=== PATIENT | male | born 1970 | race African-American/Black ===

== ENCOUNTER 2016-06-20 09:10 | Emergency (ER) | payer SELFPAY ==
[2016-06-20 11:02] LABS: APPEARANCE,URINE CLEAR; BILIRUBIN,URINE NEGATIVE (NEGATIVE); GLUCOSE, URINE NEGATIVE (NEGATIVE); KETONES,URINE TRACE mg/dL (NEGATIVE); LEUKOCYTE ESTERASE,URINE NEGATIVE (NEGATIVE); NITRITE,URINE NEGATIVE (NEGATIVE); PROTEIN,URINE NEGATIVE (NEGATIVE); URINE SPECIFIC GRAVITY 1.019; UROBILINOGEN,URINE NEGATIVE mg/dL (<2.0)
[2016-06-20 11:20] LABS: URINE BARBITURATES SCREEN NEGATIVE; URINE METHADONE SCREEN NEGATIVE; URINE PHENCYCLIDINE SCREEN NEGATIVE
[2016-06-20 11:58] LABS: ABSOLUTE BASOPHILS # (AUTO) 0.1 10^3/uL (0.0-0.2); ABSOLUTE EOSINOPHILS # (AUTO) 0.1 10^3/uL (0.0-0.6); ABSOLUTE LYMPHOCYTES (AUTO) 1.7 10^3/uL (0.5-4.7); ABSOLUTE MONOCYTES (AUTO) 0.5 10^3/uL (0.1-1.4); ABSOLUTE NEUT (AUTO) 2.2 10^3/uL (1.7-8.2); BASOPHILS % (AUTO) 2.6 % (0-2); EOSINOPHILS % (AUTO) 1.3 % (0-6); HEMATOCRIT 41.4 % (37.9-51.0); HEMOGLOBIN 13.8 g/dL (13.5-17.0); LYMPHOCYTES % (AUTO) 36.8 % (13-45); MEAN CORPUSCULAR HEMOGLOBIN 28.9 pg (27.0-33.4); MEAN CORPUSCULAR HGB CONC 33.3 g/dL (32.0-36.0); MEAN CORPUSCULAR VOLUME 87 fl (80-97); MONOCYTES % (AUTO) 11.6 % (3-13); RED BLOOD COUNT 4.77 10^6/uL (4.35-5.55); RED CELL DISTRIBUTION WIDTH 14.2 % (11.5-14.0); SEGMENTED NEUTROPHILS % (AUTO) 47.7 % (42-78); WHITE BLOOD COUNT 4.5 10^3/uL (4.0-10.5)
--- NOTE | 2016-06-20 12:11 | ER Document Report ---
ED Psych Disorder / Suicide - General Chief Complaint: Suicidal Ideation Stated Complaint: WEAKNESS Time seen by provider: 12:09 Mode of Arrival: Ambulatory Information source: Patient Notes: The patient is a 46-year-old man with a history of depression and presents to the emergency room hearing voices telling him to hurt himself. Patient states he has been depressed. Patient states she's not been on antidepressant medicines for "a while". He states he has been hospitalized at the [facility] in [place] which is where he is from. He is currently staying with his mother here in [place]. TRAVEL OUTSIDE OF THE U.S. IN LAST 30 DAYS: No - HPI Patient complains to provider of: Suicidal ideation Onset: Just prior to arrival Onset was: Gradual Quality of pain: No pain Severity: None Pain Level: Denies Suicide Risk Factors: Depressed, Male Situational problems related to: denies: Daughter, Legal problems, Lost job, Parent, Recent , Recent divorce, School, Sexual orientation, Significant other, Son, Spouse, Work, Other Suicide Attempt Method: denies: Drowning, Hanging, Motor Vehicle, Overdose, Shooting, Stabbing/Cutting, Train, Other Overdose of: No: Acetominophen, Alcohol, Anticholinergic, Anti-depressants, Benzodiazepine, Salicylate, Tricyclic Antidepressant, Other Injury to: No: Generalized, Abdomen, Ankle, Back, Breast, Buttocks, Chest, Elbow , Epigastric, Flank, Face, Finger, Foot, Hand, Head, Hip, Knee, Leg, Lower extremity, Mouth, Neck, Pelvic, Penis, Perineum, Rectum, Shoulder, Testicle, Thigh, Throat, Trunk, Upper extremity, Vagina, Wrist Associated symptoms: Auditory hallucinations, Depressed Similar symptoms previously: Yes Recently seen / treated by doctor: No - Related Data Allergies/Adverse Reactions: No Known Allergies Allergy (Verified 06/20/16 18:48) Home Medications: Current Home Medications No Home Medications 06/20/16 [History] Past Medical History - General Information source: Patient - Social History Smoking Status: Current Every Day Smoker Cigarette use (# per day): Yes Chew tobacco use (# tins/day): No - 1 pack per day Frequency of alcohol use: None Drug Abuse: Marijuana Family History: Reviewed & Not Pertinent Patient has suicidal ideation: Yes Patient has homicidal ideation: No - Past Medical History Cardiac Medical History: Reports: None Pulmonary Medical History: Reports: None EENT Medical History: Reports: None Neurological Medical History: Reports: Hx Migraine Endocrine Medical History: Reports: None Renal/ Medical History: Reports: None. Denies: Hx Peritoneal Dialysis Malignancy Medical History: Reports None GI Medical History: Reports: Hx Gastroesophageal Reflux Disease, Hx Hepatitis - B & C, Hx Ulcer Musculoskeltal Medical History: Reports None Skin Medical History: Reports None Psychiatric Medical History: Reports: Hx Depression Traumatic Medical History: Reports: None Infectious Medical History: Reports: Hx Hepatitis - B & C Past Surgical History: Reports: Hx Abdominal Surgery - left inguinal hernia, Hx Herniorrhaphy, Hx Kidney (Renal Surgery) - Donated kidney, Other - Patient donated a candidate to his brother - Immunizations Immunizations up to date: No Hx Diphtheria, Pertussis, Tetanus Vaccination: Yes Review of Systems - Review of Systems Constitutional: denies: Chills, Fever EENT: No symptoms reported Cardiovascular: No symptoms reported Respiratory: No symptoms reported Gastrointestinal: No symptoms reported Genitourinary: No symptoms reported Male Genitourinary: No symptoms reported Musculoskeletal: No symptoms reported Skin: No symptoms reported Hematologic/Lymphatic: No symptoms reported Neurological/Psychological: See HPI Physical Exam - Vital signs Vitals: Temp Pulse Resp BP Pulse Ox 97.9 F 53 L 18 133/83 H 98 06/20/16 09:18 06/20/16 09:18 06/20/16 09:18 06/20/16 09:18 06/20/16 09:18 Notes: Physical exam: GENERAL: 46-year-old man, alert and oriented 3, no acute distress HEAD: Atraumatic, normocephalic. EYES: Pupils equal round and reactive to light, extraocular movements intact, sclera anicteric, conjunctiva are normal. ENT: TMs normal, nares patent, oropharynx clear without exudates. Moist mucous membranes. NECK: Normal range of motion, supple without lymphadenopathy or JVD. LUNGS: Breath sounds clear to auscultation bilaterally and equal. No wheezes rales or rhonchi. HEART: Regular rate and rhythm without murmurs, rubs or gallops. ABDOMEN: Soft, nontender, normoactive bowel sounds. No guarding, no rebound. No masses appreciated. EXTREMITIES: Normal range of motion, no pitting or edema. No clubbing or cyanosis. NEUROLOGICAL: Cranial nerves II through XII grossly intact. Normal speech, normal gait. PSYCH: Appears depressed, endorses suicidal ideations, states he is hearing voices. SKIN: Warm, Dry, normal turgor, no rashes or lesions noted. Course - Re-evaluation Re-evalutation: 06/20/16 14:47 Patient is medically stable for psychiatric admission or discharge. 06/20/16 19:55 - Vital Signs Vital signs: Temp Pulse Resp BP Pulse Ox 98.1 F 50 L 15 132/85 H 99 06/20/16 16:33 06/20/16 16:33 06/20/16 16:33 06/20/16 16:33 06/20/16 16:33 - Laboratory Result Diagrams: 06/20/16 11:29 06/20/16 11:29 Laboratory results interpreted by me: 06/20/16 06/20/16 06/20/16 10:05 11:29 11:29 RDW 14.2 H Basophils % 2.6 H Creatinine 1.26 H Urine Ketones TRACE H Salicylates < 1.0 L Acetaminophen < 10 L - EKG Interpretation by Me Rate: Normal Rhythm: NSR - EKG shows normal sinus rhythm with a ventricular rate of 50, no acute ST-T wave changes Discharge - Discharge Clinical Impression: mood disorder NOS, suicidal ideation, pre-hypertension Condition: Stable Disposition: PSYCH HOSP/UNIT Additional Instructions: Regarding Blood Pressure: The Centers for Medicare and Medicaid Services has specific recommendations regarding a person's blood pressure. There are several lifestyle modifications that are recommended in order to help lower your blood pressure. These include: Quitting smoking if you smoke. Reducing the amount of sodium in your diet. Getting regular exercise Limiting alcohol to no more than 2 drinks a day for men and one drink a day for women. Eating a healthy diet, including more fruits and vegetables, low fat dairy products, less saturated and total fat. Losing weight if you are overweight. FOLLOW-UP: It is recommended that you follow-up with a primary care physician within the next 2-3 days for a repeat blood pressure evaluation and counseling about the specific lifestyle modifications that are right for you. Call your doctor's office and let them know your blood pressure was elevated and you were advised to get your blood pressure checked in the above time-line. If you are unable to get into your doctor's office in this time period, you can follow-up with a new physician (I have left the numbers below for a few primary care doctors affiliated with this [facility]) or return to the ER. PRIMARY CARE PHYSICIANS: Dr. Justo Cee [address], [place] [address] [phone] Dr Cisneros Address: [address] [place] [address] , [place] [address] Dr Taylor Address: [address] [place] [address] , [place] [id number] Dr Gregory Barrera [address] [place] [address] [place] [address] [phone] Forms: Elevated Blood Pressure
[2016-06-20 12:15] LABS: ALANINE AMINOTRANSFERASE 27 U/L (21-72); ALBUMIN 3.9 g/dL (3.5-5.0); ALKALINE PHOSPHATASE 56 U/L (38-126); ANION GAP 9 (5-19); ASPARTATE AMINO TRANSFERASE 27 U/L (17-59); BILIRUBIN,TOTAL 0.8 mg/dL (0.2-1.3); BLOOD UREA NITROGEN 10 mg/dL (7-20); CALCIUM 9.6 mg/dL (8.4-10.2); CARBON DIOXIDE 26 mmol/L (22-30); CHLORIDE 106 mmol/L (98-107); CREATININE RESULT 1.26 mg/dL (0.52-1.25); GLUCOSE 109 mg/dL (75-110); POTASSIUM 3.9 mmol/L (3.6-5.0); TOTAL PROTEIN 6.5 g/dL (6.3-8.2)
[2016-06-20 12:22] LABS: ALCOHOL < 10 mg/dL (NONE DETECTED)
--- NOTE | 2016-06-20 12:29 | EKG REPORT ---
SEVERITY:- NORMAL ECG - SINUS RHYTHM : Confirmed by: Jose Estraad MD 20-Jun-2016 12:28:11
[2016-06-20] MEDS ORDERED: HALOPERIDOL LACTATE INJ 5 MG/1 ML VIAL IM ONE (14:14)
[2016-06-20] MEDS ORDERED: BENZTROPINE MESYLATE 1 MG TABLET PO ONE (14:15)
--- NOTE | 2016-06-20 16:18 | PSYCHOLOGICAL NOTE ---
Psych Note - Psych Note Psych Note: Patient is a 46 year old male who presents requesting assistance with hearing voices and possible SI. Note, patient accompanied another patient who presented via EMS, by riding in the ambulance and later opted to check in. Patient states he suddenly started hearing voices to harm himself. He states he does NOT want to hurt himself, but that is what the voices are telling him to do. Patient states he recently relocated from [place], where he was residing in the homeless residential and receiving mental health treatment. Patient states he was recently at [facility], where he went via [facility]. Patient denies that he attempted to harm himself prior to that admission, but states experiencing the same command hallucinations, so he presented to the ED. Patient states he was taking medications upon discharge, but cannot recall what they were. Patient reports he relocated to [place] to stay with his mother. Patient reports he thinks he was being followed by [facility] prior to his admission at [facility]. Patient reports one prior suicide attempt via attempting to slit his throat, but reports it was years ago (unable to provide specifics). Patient reports auditory command hallucinations, but adamant that he does not want to hurt himself. Patient states he usually orly with the voices, which he reports he hears daily, by sleeping. Discussed with patient additional coping skills, to include keeping himself busy or distracted by watching television, etc. Patient is A&Ox4. Mood is euthymic with normal affect. Patient denies suicidal/ homicidal ideations, intent, plan, or means. Patient endorses auditory command hallucinations telling him to harm himself. Thought processes were organized. Conversational speech was WNL for rate, tone, and prosody. Intellectual abilities were estimated within low average range. Attention and focus were fair. Insight, judgment, and impulse control were fair. Unspecified Schizophrenia and Other Psychotic Disorder Patient was psychiatric cleared and recommended for discharge; however, after discussing plan of care with ED MD concerns were expressed in regards to patient 's ability to remain safe throughout tonight prior to following up with [facility] tomorrow morning. Therefor, patient was placed under IVC and will be reevaluated in the morning for further disposition and recommendations. I consulted with Dr. Everett in regards to the care and management of this patient.
[2016-06-21] MEDS ORDERED: ONDANSETRON 4 MG TAB.RAPDIS SL ONE (03:25)
--- NOTE | 2016-06-21 03:28 | ER Document Report ---
Doctor's Note Notes: 06/21/16 03:27 Notified the nursing staff that patient had an episode of vomiting, Zofran has been ordered as well as repeat labs, I evaluated patient, he reports that he no longer feels nauseated but he is having some right-sided abdominal pain, there is mild tenderness in the right upper quadrant on evaluation, he does have some voluntary guarding as well
[2016-06-21 03:56] LABS: ABSOLUTE EOSINOPHILS # (AUTO) 0.1 10^3/uL (0.0-0.6); ABSOLUTE LYMPHOCYTES (AUTO) 2.3 10^3/uL (0.5-4.7); ABSOLUTE MONOCYTES (AUTO) 0.6 10^3/uL (0.1-1.4); ABSOLUTE NEUT (AUTO) 2.9 10^3/uL (1.7-8.2); BASOPHILS % (AUTO) 0.7 % (0-2); HEMATOCRIT 47.5 % (37.9-51.0); HEMOGLOBIN 15.2 g/dL (13.5-17.0); HGB HCT DIFFERENCE -1.9; LYMPHOCYTES % (AUTO) 39.1 % (13-45); MEAN CORPUSCULAR HEMOGLOBIN 28.1 pg (27.0-33.4); MEAN CORPUSCULAR VOLUME 88 fl (80-97); MONOCYTES % (AUTO) 10.5 % (3-13); RED BLOOD COUNT 5.43 10^6/uL (4.35-5.55); SEGMENTED NEUTROPHILS % (AUTO) 48.7 % (42-78); WHITE BLOOD COUNT 5.9 10^3/uL (4.0-10.5)
[2016-06-21 04:07] LABS: ALANINE AMINOTRANSFERASE 37 U/L (21-72); ALBUMIN 4.7 g/dL (3.5-5.0); ALKALINE PHOSPHATASE 80 U/L (38-126); ANION GAP 13 (5-19); ASPARTATE AMINO TRANSFERASE 34 U/L (17-59); BILIRUBIN,TOTAL 0.9 mg/dL (0.2-1.3); BLOOD UREA NITROGEN 11 mg/dL (7-20); CALCIUM 9.9 mg/dL (8.4-10.2); CARBON DIOXIDE 22 mmol/L (22-30); CHLORIDE 106 mmol/L (98-107); CREATININE RESULT 1.27 mg/dL (0.52-1.25); GLUCOSE 83 mg/dL (75-110); LIPASE 79.8 U/L (23-300); POTASSIUM 4.1 mmol/L (3.6-5.0); SODIUM 141.1 mmol/L (137-145); TOTAL PROTEIN 7.3 g/dL (6.3-8.2)
--- NOTE | 2016-06-21 04:27 | ER Document Report ---
Doctor's Note Notes: 06/21/16 04:27 Patient is now sleeping comfortably, reports feeling much better, no further episodes of vomiting, repeat labs are relatively unremarkable, abdomen is soft and nontender, will continue to monitor
[2016-06-21] MEDS ORDERED: ONDANSETRON HCL INJ/PF 4 MG/2 ML SDV IV ONE (09:20)
[2016-06-21] MEDS ORDERED: NORMAL SALINE 1000 ML 1,000 ML IV PRN (09:20)
--- NOTE | 2016-06-21 09:25 | ER Document Report ---
Doctor's Note Notes: 06/21/16 09:23 Nursing staff reports additional vomiting this morning. On examination patient says that 2 episodes of vomiting he's had here all of he's had recently been he did have some diarrhea beginning last night. He denies fever, cough, shortness of breath, hematemesis, or melena. Patient is awake alert answers questions appropriately. Skin warm and dry Chest clear to auscultation bilateral breath sounds equal Heart regular rate and rhythm Abdomen bowel sounds positive soft mild right upper quadrant and right lower quadrant tenderness nondistended no guarding rebound rigidity no referred pain Back nontender normal male testes ongoing no masses or hernias 06/21/16 11:50 Review of records shows patient has had multiple visits to emergency department with complaints of abdominal pain nausea and vomiting carries a diagnosis of hepatitis B as well as gastric ulcers. Reevaluation patient shows a dull pain to be resolved and history regarding whether this presentation something new or chronic finding in him is somewhat difficult to obtain given his mental illness. The patient reports having donated a kidney in the past and my suspicion for internal pathology is low enough especially in view of 2 normal CBCs that a do not believe CT scanning is warranted. Patient is comfortable with discharge and outpatient follow-up from a GI standpoint. I discussed patient psychiatric disposition with mental health services and he does not believe the patient represents a imminent threat to self or others and he'll be instructed to follow-up at [facility] today.
--- NOTE | 2016-06-21 10:22 | PSYCHOLOGICAL NOTE ---
Psych Note - Psych Note Psych Note: Conducted check in with patient who is a 46 year old male under IVC at [facility]. Patient initially checked in with c/o auditory command hallucinations telling him to harm himself by cutting his throat. Patient did experience some n/v/d overnight and this morning and is being treated for these symptoms. Patient this morning states he is feeling better and ready to walk into [facility], per the discussion yesterday. Patient denies wanting to harm himself or anyone else. Patient states he has heard voices today, but does not want to do what they told him to do. Patient reports he can return home to his mother's house, and will likely walk home as she lives in the [facility]. Reviewed with patient his identified coping skills to assist in managing the voices. Patient is A&Ox4. Mood is euthymic with normal affect. Patient denies suicidal/ homicidal ideations, intent, plan, or means. Patient endorses auditory command hallucinations telling him to harm himself. Thought processes were organized. Conversational speech was WNL for rate, tone, and prosody. Intellectual abilities were estimated within low average range. Attention and focus were fair. Insight, judgment, and impulse control were fair. 298.9 (F29) Unspecified Schizophrenia and Other Psychotic Disorder Patient is psychiatrically cleared for discharge to walk in at [facility] today. Patient is recommended for rescind IVC. Patient no longer meets criteria for IVC per the [id number] as he does not want to harm himself or anyone else. Patient verbalizes that he experiences auditory command hallucinations, but denies wanting to follow through with them. Patient is able to provide appropriate coping skills to assist him with managing his hallucinations, to include sleeping, keeping himself busy, etc. Coordinated care with [facility]. I consulted with Dr. Everett in regards to the care and management of this patient. ED MD is in agreement with dispositions and recommendations. Note, unable to obtain collateral information due to patient not being able to recall his mother's phone number.
[2016-06-21] MEDS ORDERED: HALOPERIDOL 5 MG TABLET PO ONE (12:17)
[2016-06-21 12:38] VITALS: BP 161/86
== END 2016-06-21 12:56 | disposition home or self-care (01) ==
LOC: ER 09:10
DX: F32.9 Major depressive disorder, single episode, unspecified (principal); R45.851 Suicidal ideations; R44.0 Auditory hallucinations; R03.0 Elevated blood-pressure reading, without diagnosis of hypertension; B19.10 Unspecified viral hepatitis B without hepatic coma; K25.9 Gastric ulcer, unspecified as acute or chronic, without hemorrhage or perforation; R11.10 Vomiting, unspecified; R19.7 Diarrhea, unspecified; R10.811 Right upper quadrant abdominal tenderness; R10.813 Right lower quadrant abdominal tenderness; F17.210 Nicotine dependence, cigarettes, uncomplicated; Z90.5 Acquired absence of kidney
CPT/HCPCS: 93005; 99285; 96372; 96360; 96361; 36415; 80307 ×4; 83690; 85025; 80053; 81001; 93010; S0119; J1630; J2405; J7030

== ENCOUNTER 2016-06-22 14:36 | Emergency (ER) | payer SELFPAY ==
--- NOTE | 2016-06-22 14:49 | ER Document Report ---
ED Medical Screen (RME) - General Chief Complaint: Psych Problem Stated Complaint: SUICIDAL THOUGHTS Time seen by provider: 14:45 Mode of Arrival: Ambulatory Information source: Patient Notes: 46-year-old male presents to ED for suicidal ideations. Tender [facility] with a stretch box tender and fork. He states they were to cut his throat into jab his eyes out. He states the voices are telling him to hurt himself and other people. Discharged from [facility] yesterday. He was in the hospital for suicidal thoughts at that time. I have greeted and performed a rapid initial assessment of this patient. A comprehensive ED assessment and evaluation of the patient, analysis of test results and completion of medical decision making process will be conducted by an additional ED providers. TRAVEL OUTSIDE OF THE [place] IN LAST 30 DAYS: No - Related Data Allergies/Adverse Reactions: No Known Allergies Allergy (Verified 06/20/16 18:48) Past Medical History Neurological Medical History: Reports: Hx Migraine Renal/ Medical History: Denies: Hx Peritoneal Dialysis GI Medical History: Reports: Hx Gastroesophageal Reflux Disease, Hx Hepatitis - B & C, Hx Ulcer Psychiatric Medical History: Reports: Hx Depression Infectious Medical History: Reports: Hx Hepatitis - B & C Past Surgical History: Reports: Hx Abdominal Surgery - left inguinal hernia, Hx Herniorrhaphy, Hx Kidney (Renal Surgery) - Donated kidney, Other - Patient donated a candidate to his brother - Immunizations Immunizations up to date: No Hx Diphtheria, Pertussis, Tetanus Vaccination: Yes
[2016-06-22 15:25] LABS: ABSOLUTE BASOPHILS # (AUTO) 0.1 10^3/uL (0.0-0.2); ABSOLUTE EOSINOPHILS # (AUTO) 0.1 10^3/uL (0.0-0.6); ABSOLUTE LYMPHOCYTES (AUTO) 2.8 10^3/uL (0.5-4.7); ABSOLUTE MONOCYTES (AUTO) 0.7 10^3/uL (0.1-1.4); ABSOLUTE NEUT (AUTO) 2.8 10^3/uL (1.7-8.2); EOSINOPHILS % (AUTO) 1.8 % (0-6); HEMATOCRIT 42.9 % (37.9-51.0); HEMOGLOBIN 13.8 g/dL (13.5-17.0); HGB HCT DIFFERENCE -1.5; LYMPHOCYTES % (AUTO) 43.8 % (13-45); MEAN CORPUSCULAR HEMOGLOBIN 28.2 pg (27.0-33.4); MEAN CORPUSCULAR HGB CONC 32.3 g/dL (32.0-36.0); MEAN CORPUSCULAR VOLUME 88 fl (80-97); MONOCYTES % (AUTO) 10.5 % (3-13); RED CELL DISTRIBUTION WIDTH 14.1 % (11.5-14.0); SEGMENTED NEUTROPHILS % (AUTO) 42.9 % (42-78); WHITE BLOOD COUNT 6.5 10^3/uL (4.0-10.5)
[2016-06-22 15:42] LABS: ALANINE AMINOTRANSFERASE 34 U/L (21-72); ALBUMIN 4.5 g/dL (3.5-5.0); ALCOHOL < 10 mg/dL (NONE DETECTED); ALKALINE PHOSPHATASE 63 U/L (38-126); ANION GAP 11 (5-19); ASPARTATE AMINO TRANSFERASE 24 U/L (17-59); BILIRUBIN,TOTAL 0.6 mg/dL (0.2-1.3); BLOOD UREA NITROGEN 8 mg/dL (7-20); CALCIUM 9.9 mg/dL (8.4-10.2); CARBON DIOXIDE 28 mmol/L (22-30); CHLORIDE 103 mmol/L (98-107); CREATININE RESULT 1.39 mg/dL (0.52-1.25); GLUCOSE 83 mg/dL (75-110); POTASSIUM 3.9 mmol/L (3.6-5.0); SODIUM 141.5 mmol/L (137-145); TOTAL PROTEIN 6.9 g/dL (6.3-8.2)
[2016-06-22 16:20] LABS: URINE BARBITURATES SCREEN NEGATIVE; URINE METHADONE SCREEN NEGATIVE; URINE PHENCYCLIDINE SCREEN NEGATIVE
[2016-06-22] MEDS ORDERED: BENZTROPINE MESYLATE INJ 2 MG/2 ML AMPULE IM ONE (16:51)
[2016-06-22] MEDS ORDERED: HALOPERIDOL DECANOATE INJ 100 MG/1 ML VIAL IM ONE (16:51)
--- NOTE | 2016-06-22 16:54 | PSYCHOLOGICAL NOTE ---
Psych Note - Psych Note Psych Note: Patient is a 46-year-old male who presents via our [facility] mobile crisis with the complaints of auditory command hallucinations telling him to harm himself by cutting his throat/suicidal thoughts. Note patient was seen and discharged for similar complaints yesterday (06/21/2016) with the plan to follow up with [facility]. Patient reportedly walked into the [facility] clinic yesterday and engaged in the assessment at which time he denied thoughts of harming himself. Patient returned today for medication evaluation in this time reported above noted complaints. Patient states he did not fill his prescription of Haldol because he did not have the money to do so. Patient today states he does not want to listen or follow through with the command hallucinations. Patient denies wanting to harm himself or by suicide. Patient states again he has lived in this area for roughly one month and did not have a plan in regards to obtaining medications upon arrival. Patient reports he resides with his mother. Patient did present to our [facility] today with a knife and fork which he stated he wanted to use to stab himself with. These items were removed from the person patient continues to state he cannot recall the medications he was on prior to moving to [place]. Patient reports he is able to return to his mother's home but states she is in failing health. Patient reports he continues to suffer with stomach pains and some N/V. Note upon arrival patient denied these complaints to the nurse. [facility] mobile detention worker, Hammad, states she IVC the patient and her doctor wants him to go to a psychiatric hospital. Discussed with worker patient's overall presentation both yesterday and today. Discussed with worker that these allegedly hallucinations have been a most days of the week occurrence since the age of 12. Patient is A&Ox4. Mood is euthymic with normal affect. Patient endorses suicidal thoughts with plan due to auditory command hallucinations. Patient denies wanting to complete these commands and further denies wanting to by suicide. Patient denies homicidal ideations, intent, plan, means. Thought processes were organized. Conversational speech was WNL for rate, tone, and prosody. Intellectual abilities were estimated within low average range. Attention and focus were fair. Insight, judgment, and impulse control were fair. 298.9 (F29) Unspecified Schizophrenia and Other Psychotic Disorder Patient is not recommended for IVC. Discussed with ED M.D. plan of care, and it is felt patient would be best served by remaining in the department overnight for additional observation and reevaluation in the morning. ED DM D states he plans to administer 100 mg Haldol Decanoate to assist the patient with his reported symptoms and medication management. I consulted with Dr. Everett in regards to the care and management of this patient. ED M.Pasha. is in agreement with disposition and recommendations.
[2016-06-22 17:11] LABS: APPEARANCE,URINE CLEAR; BILIRUBIN,URINE NEGATIVE (NEGATIVE); GLUCOSE, URINE NEGATIVE (NEGATIVE); KETONES,URINE NEGATIVE (NEGATIVE); LEUKOCYTE ESTERASE,URINE NEGATIVE (NEGATIVE); NITRITE,URINE NEGATIVE (NEGATIVE); PROTEIN,URINE NEGATIVE (NEGATIVE); URINE SPECIFIC GRAVITY 1.008; UROBILINOGEN,URINE NEGATIVE mg/dL (<2.0)
--- NOTE | 2016-06-22 22:24 | ER Document Report ---
ED General - General Mode of Arrival: Ambulatory TRAVEL OUTSIDE OF THE U.S. IN LAST 30 DAYS: No - HPI Patient complains to provider of: schizophrenia suicidal ideation hallucinations auditory <RACHAEL LUBIN - Last Filed: 06/22/16 22:21> <ADNÁ SOLIMAN - Last Filed: 06/23/16 10:38> - General Chief Complaint: Suicidal Ideation Stated Complaint: SUICIDAL THOUGHTS - HPI Notes: Patient with multiple visits recently for psychiatric evaluation. Patient has a history of schizophrenia. Patient has a history of auditory hallucinations. Patient is accompanied today by mobile signal worker stated the patient arrived at their facility stating that he was going to harm himself before denies. They were able to take the patient's weapons away and then decide come to the ER for further evaluation. Patient was recently discharged from the ER for similar presentation day prior to arrival. Patient states that he changes states auditory hallucinations suicidal thoughts ongoing since the age of 12. Patient denies any nausea vomiting diarrhea fevers chills abdominal pain chest pain. Patient was not able to have this prescription filled that was recently prescribed for him states he is not taking any medication (RACHAEL LUBIN) - Related Data Allergies/Adverse Reactions: No Known Allergies Allergy (Verified 06/20/16 18:48) Past Medical History - General Information source: Patient - Social History Smoking Status: Never Smoker Chew tobacco use (# tins/day): No Frequency of alcohol use: None Drug Abuse: Marijuana Family History: Reviewed & Not Pertinent Patient has suicidal ideation: Yes Patient has homicidal ideation: Yes Neurological Medical History: Reports: Hx Migraine Renal/ Medical History: Denies: Hx Peritoneal Dialysis GI Medical History: Reports: Hx Gastroesophageal Reflux Disease, Hx Hepatitis - B & C, Hx Ulcer Psychiatric Medical History: Reports: Hx Depression Infectious Medical History: Reports: Hx Hepatitis - B & C Past Surgical History: Reports: Hx Abdominal Surgery - left inguinal hernia, Hx Herniorrhaphy, Hx Kidney (Renal Surgery) - Donated kidney, Other - Patient donated a candidate to his brother - Immunizations Immunizations up to date: No Hx Diphtheria, Pertussis, Tetanus Vaccination: Yes <RACHAEL LUBIN - Last Filed: 06/22/16 22:21> Review of Systems - Review of Systems Constitutional: No symptoms reported EENT: No symptoms reported Cardiovascular: No symptoms reported Respiratory: No symptoms reported Gastrointestinal: No symptoms reported Genitourinary: No symptoms reported Male Genitourinary: No symptoms reported Musculoskeletal: No symptoms reported Skin: No symptoms reported Hematologic/Lymphatic: No symptoms reported Neurological/Psychological: Suicidal ideation, Other - Hallucinations auditory schizophrenia -: Yes All other systems reviewed and negative <RACHAEL LUBIN - Last Filed: 06/22/16 22:21> Physical Exam - Vital signs Interpretation: Normal - General General appearance: Appears well, Alert - HEENT Head: Normocephalic, Atraumatic Eyes: Normal Pupils: PERRL - Respiratory Respiratory status: No respiratory distress Chest status: Nontender Breath sounds: Normal Chest palpation: Normal - Cardiovascular Rhythm: Regular Heart sounds: Normal auscultation Murmur: No - Abdominal Inspection: Normal Distension: No distension Bowel sounds: Normal Tenderness: Nontender Organomegaly: No organomegaly - Back Back: Normal, Nontender - Extremities General upper extremity: Normal inspection, Nontender, Normal color, Normal ROM , Normal temperature General lower extremity: Normal inspection, Nontender, Normal color, Normal ROM , Normal temperature, Normal weight bearing. No: Gamaliel's sign - Neurological Neuro grossly intact: Yes Cognition: Normal Orientation: AAOx4 Carleen Coma Scale Eye Opening: Spontaneous Carleen Coma Scale Verbal: Oriented Carleen Coma Scale Motor: Obeys Commands Carleen Coma Scale Total: 15 Speech: Normal Motor strength normal: LUE, RUE, LLE, RLE Sensory: Normal - Psychological Associated symptoms: Flat affect - Skin Skin Temperature: Warm Skin Moisture: Dry Skin Color: Normal <RACHAEL LUBIN - Last Filed: 06/22/16 22:21> Course - Laboratory Result Diagrams: 06/22/16 15:00 06/22/16 15:00 <RACHAEL LUBIN - Last Filed: 06/22/16 22:21> - Laboratory Result Diagrams: 06/22/16 15:00 06/22/16 15:00 <ADÁN SOLIMAN - Last Filed: 06/23/16 10:38> - Re-evaluation Re-evalutation: 06/22/16 22:23 Myself and our mental health team evaluated the patient. Feel the best treatment course at this time will be to give the patient a dose of Haldol Decanoate is that he is unable to afford her take any of his medications prescribed. At this time presentation seems to be similar to past presentations. The pain the patient will benefit from any inpatient resources as a symptoms per the patient had been ongoing since the age of 12. I do feel as though giving the patient be medications tonight will observe him reevaluate in the morning more likely discharge home (RACHAEL LUBIN) 06/23/16 10:36 Reevaluation of patient this a.m. shows patient to report no suicidal ideation or audio hallucinations now. The patient appears to have gained good control of his psychiatric symptoms with long-acting Haldol which should last for months. The patient denies any abdominal pain at this examiner. On exam he is awake alert mentating clearly not obviously hallucinating. Abdomen soft nontender nondistended no guarding rebound rigidity Believe patient is safe for discharge and will be instructed at [facility] today as Depakote Haldol appears to be the best option for long-term control his schizophrenia symptoms. (ADÁN SOLIMAN) - Vital Signs Vital signs: Temp Pulse Resp BP Pulse Ox 98.2 F 70 16 122/65 99 06/23/16 03:54 06/23/16 03:54 06/23/16 03:54 06/23/16 03:54 06/23/16 03:54 (RACHAEL LUBIN) (ADÁN SOLIMAN) - Laboratory Laboratory results interpreted by nm: 06/22/16 06/22/16 15:00 15:00 RDW 14.1 H Creatinine 1.39 H Est GFR (Non-Af Amer) 55 L Salicylates < 1.0 L Acetaminophen < 10 L (RACHAEL LUBIN) (ADÁN SOLIMAN) Discharge <RACHAEL LUBIN - Last Filed: 06/22/16 22:21> <ADÁN SOLIMAN - Last Filed: 06/23/16 10:38> - Discharge Clinical Impression: Auditory hallucinations Schizophrenia Qualifiers: Schizophrenia type: unspecified Qualified Code(s): F20.9 - Schizophrenia, unspecified Condition: Stable Disposition: HOME, SELF-CARE Instructions: Schizophrenia ([facility]), Hallucinations ([facility]) Additional Instructions: Please follow-up with her psychiatric provider providers given to you here in ER. Go to [facility] today for further care
[2016-06-23] MEDS ORDERED: FAMOTIDINE 20 MG TABLET PO ONE (01:50)
[2016-06-23 10:57] VITALS: BP 132/81
--- NOTE | 2016-06-23 11:28 | PSYCHOLOGICAL NOTE ---
Psych Note - Psych Note Psych Note: Conducted check in with patient who is a 46 year old male who presented yesterday via [facility] mobile crisis due to auditory command hallucinations telling him to harm himself with a knife. Note, patient was seen and discharged for similar complaints the day prior but did not fill his prescriptions for Haldol due to financial constraints. Patient has a long history of similar type psychiatric complaints, and specifically those command hallucinations since the age of 12. Patient was administered the Haldol Deconate 100 mg. Patient this morning states he is feeling well. He states he was under the impression he was going to [facility]. Patient advised that his needs were medication compliance , and since he is currently denying SI and ACH, he will be recommended for rescind IVC (that was petitioned by [facility]) and discharged to follow up with [facility]. Patient was recommended by [facility] (per the Clinical Assessment provided yesterday) for ACTT, which is in the patient's best interest so his needs can be met within the community. Patient denies wanting to harm himself or anyone else. Patient is A&Ox4. Mood is euthymic with normal, even brighter affect. Patient denies suicidal/homicidal ideations, intent, plan, or means. Patient denies A/V h; delusions not noted. Thought processes were organized. Conversational speech was organized and WNL for rate, tone, and prosody. Intellectual abilities were estimated within low average range. Attention and focus were fair. Insight, judgment, and impulse control were fair. 298.9 (F29) Unspecified Schizophrenia and Other Psychotic Disorder Patient is psychiatrically cleared for discharge and recommended for rescind IVC. Patient presents organized, makes eye contact, and denies auditory command hallucinations. Patient denies wanting to harm himself, despite the chronic command hallucinations. Patient noted he has experienced hallucinations since the age of 12. Patient has had multiple prior inpatient hospitalizations, to include a recent inpatient at [facility] in [place]. Patient was seen and evaluated by [facility] and recommended for ACTT Services. Patient is encouraged to contact [facility] to pursue these services to assist him in maintaining in the community. I consulted with Dr. Everett in regards to the care and management of this patient. ED MD is in agreement with disposition and recommendations.
== END 2016-06-23 10:50 | disposition home or self-care (01) ==
LOC: ER 14:36
DX: R44.0 Auditory hallucinations (principal); F20.9 Schizophrenia, unspecified; R45.851 Suicidal ideations
CPT/HCPCS: 99285; 96372; 36415; 80307 ×4; 85025; 80053; 81001; J0515; J1631

== ENCOUNTER 2016-06-28 09:01 | Emergency (ER) | payer SELFPAY ==
[2016-06-28] MEDS ORDERED: LIDOCAINE 2% VISCOUS SOLN 20 ML UDCUP PO ONE (09:13)
[2016-06-28] MEDS ORDERED: MAG HYDROX/AL HYDROX/SIMETH SUSP 30 ML UDCUP PO ONE (09:13)
[2016-06-28] MEDS ORDERED: METOCLOPRAMIDE HCL ORAL SOLN 10 MG/10 ML UDCUP PO ONE (09:13)
[2016-06-28 09:36] LABS: ABSOLUTE BASOPHILS # (AUTO) 0.1 10^3/uL (0.0-0.2); ABSOLUTE EOSINOPHILS # (AUTO) 0.1 10^3/uL (0.0-0.6); ABSOLUTE LYMPHOCYTES (AUTO) 1.6 10^3/uL (0.5-4.7); ABSOLUTE MONOCYTES (AUTO) 0.4 10^3/uL (0.1-1.4); ABSOLUTE NEUT (AUTO) 1.5 10^3/uL (1.7-8.2); BASOPHILS % (AUTO) 1.7 % (0-2); EOSINOPHILS % (AUTO) 3.7 % (0-6); HEMATOCRIT 42.1 % (37.9-51.0); HEMOGLOBIN 13.8 g/dL (13.5-17.0); HGB HCT DIFFERENCE -0.7; LYMPHOCYTES % (AUTO) 43.9 % (13-45); MEAN CORPUSCULAR HEMOGLOBIN 28.7 pg (27.0-33.4); MEAN CORPUSCULAR HGB CONC 32.8 g/dL (32.0-36.0); MEAN CORPUSCULAR VOLUME 87 fl (80-97); MONOCYTES % (AUTO) 9.5 % (3-13); RED BLOOD COUNT 4.81 10^6/uL (4.35-5.55); SEGMENTED NEUTROPHILS % (AUTO) 41.2 % (42-78); WHITE BLOOD COUNT 3.7 10^3/uL (4.0-10.5)
[2016-06-28 09:54] LABS: ALANINE AMINOTRANSFERASE 32 U/L (21-72); ALBUMIN 3.5 g/dL (3.5-5.0); ALKALINE PHOSPHATASE 59 U/L (38-126); ANION GAP 6 (5-19); ASPARTATE AMINO TRANSFERASE 24 U/L (17-59); BILIRUBIN,TOTAL 0.5 mg/dL (0.2-1.3); BLOOD UREA NITROGEN 10 mg/dL (7-20); CALCIUM 9.4 mg/dL (8.4-10.2); CARBON DIOXIDE 30 mmol/L (22-30); CHLORIDE 105 mmol/L (98-107); CREATININE RESULT 1.42 mg/dL (0.52-1.25); GLUCOSE 82 mg/dL (75-110); LIPASE 72.8 U/L (23-300); POTASSIUM 4.2 mmol/L (3.6-5.0); SODIUM 141.2 mmol/L (137-145); TOTAL PROTEIN 6.2 g/dL (6.3-8.2)
--- NOTE | 2016-06-28 11:06 | ER Document Report ---
ED General - General Chief Complaint: Psych Problem Stated Complaint: ABDOMINAL PAIN TRAVEL OUTSIDE OF THE U.[place]. IN LAST 30 DAYS: No - HPI Patient complains to provider of: abdominal cramping Notes: Patient has a history of schizophrenia with chronic auditory hallucinations and chronic suicidal ideation. Patient has been evaluated for both abdominal pain and psychiatric issues multiple times here in the ER. I did personally recently evaluated the patient at which time he was given a dose of Haldol decanoate for his symptoms is that he cannot afford his medications. Patient denies any fevers chills nausea vomiting diarrhea. Upon evaluation he is sleeping easily arousable. Patient upon evaluation denies any homicidal suicidal ideation but does admit to having his chronic auditory hallucinations. Patient states he has been feeling better after having the Haldol shot. Patient states he was referred to the ER for his abdominal cramping by his psychiatric providers over at [facility]. - Related Data Allergies/Adverse Reactions: No Known Allergies Allergy (Verified 06/20/16 18:48) Past Medical History - Social History Smoking Status: Unknown if Ever Smoked Family History: Reviewed & Not Pertinent Neurological Medical History: Reports: Hx Migraine Renal/ Medical History: Denies: Hx Peritoneal Dialysis GI Medical History: Reports: Hx Gastroesophageal Reflux Disease, Hx Hepatitis - B & C, Hx Ulcer Psychiatric Medical History: Reports: Hx Depression Infectious Medical History: Reports: Hx Hepatitis - B & C Past Surgical History: Reports: Hx Abdominal Surgery - left inguinal hernia, Hx Herniorrhaphy, Hx Kidney (Renal Surgery) - Donated kidney, Other - Patient donated a candidate to his brother - Immunizations Immunizations up to date: No Hx Diphtheria, Pertussis, Tetanus Vaccination: Yes Review of Systems - Review of Systems Constitutional: No symptoms reported EENT: No symptoms reported Cardiovascular: No symptoms reported Respiratory: No symptoms reported Gastrointestinal: Abdominal pain Genitourinary: No symptoms reported Male Genitourinary: No symptoms reported Musculoskeletal: No symptoms reported Skin: No symptoms reported Hematologic/Lymphatic: No symptoms reported Neurological/Psychological: Hallucinations -: Yes All other systems reviewed and negative Physical Exam - Vital signs Vitals: Temp Pulse Resp BP Pulse Ox 97.7 F 52 L 18 128/84 H 97 06/28/16 09:05 06/28/16 09:05 06/28/16 09:05 06/28/16 09:05 06/28/16 09:05 Interpretation: Normal - General General appearance: Appears well, Alert - HEENT Head: Normocephalic, Atraumatic Eyes: Normal Pupils: PERRL - Respiratory Respiratory status: No respiratory distress Chest status: Nontender Breath sounds: Normal Chest palpation: Normal - Cardiovascular Rhythm: Regular Heart sounds: Normal auscultation Murmur: No - Abdominal Inspection: Normal Distension: No distension Bowel sounds: Normal Tenderness: Nontender. No: Tender, McBurney's point, Carlton's sign, Guarding, Rebound Organomegaly: No organomegaly - Back Back: Normal, Nontender - Extremities General upper extremity: Normal inspection, Nontender, Normal color, Normal ROM , Normal temperature General lower extremity: Normal inspection, Nontender, Normal color, Normal ROM , Normal temperature, Normal weight bearing. No: Gamaliel's sign - Neurological Neuro grossly intact: Yes Cognition: Normal Orientation: AAOx4 [place] Coma Scale Eye Opening: Spontaneous [place] Coma Scale Verbal: Oriented [place] Coma Scale Motor: Obeys Commands Carleen Coma Scale Total: 15 Speech: Normal Motor strength normal: LUE, RUE, LLE, RLE Sensory: Normal - Psychological Associated symptoms: Flat affect - Skin Skin Temperature: Warm Skin Moisture: Dry Skin Color: Normal Course - Re-evaluation Re-evalutation: 06/28/16 15:32 Patient's lab work reveals no critical or acute etiology. Patient will be given a dose of Bentyl patient will be referred back to his psychiatric provider at [facility] - Vital Signs Vital signs: Temp Pulse Resp BP Pulse Ox 98.1 F 50 L 18 129/88 H 99 06/28/16 11:17 06/28/16 11:17 06/28/16 11:17 06/28/16 11:17 06/28/16 11:17 - Laboratory Result Diagrams: 06/28/16 09:24 06/28/16 09:24 Laboratory results interpreted by me: 06/28/16 06/28/16 09:24 09:24 WBC 3.7 L Seg Neutrophils % 41.2 L Absolute Neutrophils 1.5 L Creatinine 1.42 H Est GFR (Non-Af Amer) 53 L Total Protein 6.2 L Discharge - Discharge Clinical Impression: Auditory hallucinations, Abdominal cramps Schizophrenia Qualifiers: Schizophrenia type: unspecified Qualified Code(s): F20.9 - Schizophrenia, unspecified Condition: Good Disposition: HOME, SELF-CARE Instructions: Abdominal Pain ([facility]), Schizophrenia ([facility]) Additional Instructions: Follow-up with your primary care provider. Return to ER symptoms worsen. Please go directly to [facility]. Prescriptions: Dicyclomine HCl [Bentyl 20 mg Tablet] 20 mg PO QID #10 tablet
[2016-06-28 11:17] VITALS: BP 129/88
== END 2016-06-28 11:17 | disposition home or self-care (01) ==
LOC: ER 09:01
DX: R44.0 Auditory hallucinations (principal); R10.9 Unspecified abdominal pain; F20.9 Schizophrenia, unspecified; Z90.5 Acquired absence of kidney; Z86.19 Personal history of other infectious and parasitic diseases
CPT/HCPCS: 99285; 36415; 83690; 85025; 80053; J3490

== ENCOUNTER 2016-12-24 16:54 | Emergency (ER) | payer MEDICAID ==
[2016-12-24] MEDS ORDERED: METOCLOPRAMIDE HCL ORAL SOLN 10 MG/10 ML UDCUP PO ONE (17:25)
[2016-12-24] MEDS ORDERED: LIDOCAINE 2% VISCOUS SOLN 20 ML UDCUP PO ONE (17:25)
[2016-12-24] MEDS ORDERED: MAG HYDROX/AL HYDROX/SIMETH SUSP 30 ML UDCUP PO ONE (17:25)
--- NOTE | 2016-12-24 17:31 | ER Document Report ---
ED Medical Screen (RME) - General Chief Complaint: Abdominal Pain Stated Complaint: ABDOMINAL PAIN Time Seen by Provider: 12/24/16 17:22 Mode of Arrival: Ambulatory Information source: Patient TRAVEL OUTSIDE OF THE [place] IN LAST 30 DAYS: No - HPI Onset: Yesterday Onset/Duration: Gradual Context: DRANK ETOH YESTERDAY. Quality of pain: Cramping Severity: Mild Associated Symptoms: Abdominal pain, Diarrhea Exacerbated by: Denies Relieved by: Other - DRINKING COFFEE Similar symptoms previously: Yes - GASTRIC ULCER Recently seen / treated by doctor: No - Related Data Smoking: Cigarettes Frequency of alcohol use: Occasional Drug Abuse: None Allergies/Adverse Reactions: No Known Allergies Allergy (Verified 12/24/16 17:06) Past Medical History - General Information source: Patient - Past Medical History Cardiac Medical History: Reports: None EENT Medical History: Reports: None Neurological Medical History: Reports: Hx Migraine Endocrine Medical History: Reports: None Renal/ Medical History: Denies: Hx Peritoneal Dialysis GI Medical History: Reports: Hx Gastroesophageal Reflux Disease, Hx Hepatitis - B & C, Hx Ulcer Psychiatric Medical History: Reports: Hx Depression Infectious Medical History: Reports: Hx Hepatitis - B & C Past Surgical History: Reports: Hx Abdominal Surgery - left inguinal hernia, Hx Herniorrhaphy, Hx Kidney (Renal Surgery) - Donated kidney, Other - Patient donated a candidate to his brother - Immunizations Immunizations up to date: No Hx Diphtheria, Pertussis, Tetanus Vaccination: Yes Review of Systems - Review of Systems Constitutional: No symptoms reported EENT: No symptoms reported Cardiovascular: No symptoms reported Respiratory: No symptoms reported Gastrointestinal: See HPI, Abdominal pain, Diarrhea. denies: Nausea, Vomiting Musculoskeletal: No symptoms reported Skin: No symptoms reported Neurological/Psychological: No symptoms reported Physical Exam - Vital signs Vitals: Temp Pulse Resp BP Pulse Ox 98 F 50 L 16 111/79 98 12/24/16 17:04 12/24/16 17:04 12/24/16 17:04 12/24/16 17:04 12/24/16 17:04 Interpretation: No: Tachycardic, Tachypneic, Febrile - General General appearance: Appears well, Alert In distress: None - HEENT Head: Normocephalic Eyes: Normal. No: Pale conjunctiva Conjunctiva: Normal Ears: Normal Nasal: Normal Mouth/Lips: Normal Mucous membranes: Normal - Respiratory Respiratory status: No respiratory distress - Cardiovascular Rhythm: Regular Course - Vital Signs Vital signs: Temp Pulse Resp BP Pulse Ox 98 F 50 L 16 111/79 98 12/24/16 17:04 12/24/16 17:04 12/24/16 17:04 12/24/16 17:04 12/24/16 17:04
[2016-12-24 18:05] LABS: ABSOLUTE EOSINOPHILS # (AUTO) 0.2 10^3/uL (0.0-0.6); ABSOLUTE LYMPHOCYTES (AUTO) 2.6 10^3/uL (0.5-4.7); ABSOLUTE MONOCYTES (AUTO) 0.6 10^3/uL (0.1-1.4); ABSOLUTE NEUT (AUTO) 1.6 10^3/uL (1.7-8.2); BASOPHILS % (AUTO) 0.9 % (0-2); EOSINOPHILS % (AUTO) 4.1 % (0-6); HEMATOCRIT 44.4 % (37.9-51.0); HEMOGLOBIN 14.6 g/dL (13.5-17.0); HGB HCT DIFFERENCE -0.6; LYMPHOCYTES % (AUTO) 50.6 % (13-45); MEAN CORPUSCULAR HEMOGLOBIN 29.1 pg (27.0-33.4); MEAN CORPUSCULAR HGB CONC 32.8 g/dL (32.0-36.0); MEAN CORPUSCULAR VOLUME 89 fl (80-97); MONOCYTES % (AUTO) 12.2 % (3-13); RED BLOOD COUNT 5.01 10^6/uL (4.35-5.55); RED CELL DISTRIBUTION WIDTH 14.7 % (11.5-14.0); SEGMENTED NEUTROPHILS % (AUTO) 32.2 % (42-78); WHITE BLOOD COUNT 5.1 10^3/uL (4.0-10.5)
[2016-12-24 18:24] LABS: ALANINE AMINOTRANSFERASE 30 U/L (21-72); ALBUMIN 4.5 g/dL (3.5-5.0); ALKALINE PHOSPHATASE 72 U/L (38-126); ANION GAP 10 (5-19); ASPARTATE AMINO TRANSFERASE 31 U/L (17-59); BILIRUBIN,DIRECT 0.3 mg/dL (0.0-0.4); BILIRUBIN,TOTAL 0.5 mg/dL (0.2-1.3); BLOOD UREA NITROGEN 10 mg/dL (7-20); CALCIUM 9.6 mg/dL (8.4-10.2); CARBON DIOXIDE 29 mmol/L (22-30); CHLORIDE 106 mmol/L (98-107); CREATININE RESULT 1.61 mg/dL (0.52-1.25); GLUCOSE 82 mg/dL (75-110); LIPASE 59.3 U/L (23-300); POTASSIUM 4.7 mmol/L (3.6-5.0); SODIUM 145.3 mmol/L (137-145); TOTAL PROTEIN 7.4 g/dL (6.3-8.2)
[2016-12-24] MEDS ORDERED: FAMOTIDINE 20 MG TABLET PO ONE (19:22)
--- NOTE | 2016-12-24 19:36 | ER Document Report ---
ED General - General Chief Complaint: Abdominal Pain Stated Complaint: ABDOMINAL PAIN Time Seen by Provider: 12/24/16 17:22 Mode of Arrival: Ambulatory Notes: Patient is a 46-year-old male with prior history of depression and anxiety as well as chronic abdominal pain who presents with 24 hours of left and right lower quadrant abdominal pain. Patient states that this started after drinking heavily last night. He reports a history of similar symptoms in the past in the context of alcohol use. Nothing improves or worsens his pain which she describes as a constant, cramping, moderate pain. He denies any associated vomiting although notes he has had diarrhea. He has not seen his primary care doctor regarding today's concerns. He denies any testicular pain TRAVEL OUTSIDE OF THE [place] IN LAST 30 DAYS: No - Related Data Allergies/Adverse Reactions: No Known Allergies Allergy (Verified 12/24/16 17:06) Past Medical History - General Information source: Patient - Social History Smoking Status: Current Every Day Smoker Frequency of alcohol use: Occasional Drug Abuse: None Lives with: Family Family History: Reviewed & Not Pertinent - Past Medical History Cardiac Medical History: Reports: None EENT Medical History: Reports: None Neurological Medical History: Reports: Hx Migraine Endocrine Medical History: Reports: None Renal/ Medical History: Denies: Hx Peritoneal Dialysis GI Medical History: Reports: Hx Gastroesophageal Reflux Disease, Hx Hepatitis - B & C, Hx Ulcer Psychiatric Medical History: Reports: Hx Depression Infectious Medical History: Reports: Hx Hepatitis - B & C Past Surgical History: Reports: Hx Abdominal Surgery - left inguinal hernia, Hx Herniorrhaphy, Hx Kidney (Renal Surgery) - Donated kidney, Other - Patient donated a candidate to his brother - Immunizations Immunizations up to date: No Hx Diphtheria, Pertussis, Tetanus Vaccination: Yes Review of Systems - Review of Systems Notes: Constitutional: Negative for fever. HENT: Negative for sore throat. Eyes: Negative for visual changes. Cardiovascular: Negative for chest pain. Respiratory: Negative for shortness of breath. Gastrointestinal: Positive for abdominal pain Genitourinary: Negative for dysuria. Musculoskeletal: Negative for back pain. Skin: Negative for rash. Neurological: Negative for headaches, weakness or numbness. 10 point ROS negative except as marked above and in HPI. Physical Exam - Vital signs Vitals: Temp Pulse Resp BP Pulse Ox 98 F 50 L 16 111/79 98 12/24/16 17:04 12/24/16 17:04 12/24/16 17:04 12/24/16 17:04 12/24/16 17:04 Interpretation: Bradycardic Notes: PHYSICAL EXAMINATION: GENERAL: Well-appearing, well-nourished and in no acute distress. HEAD: Atraumatic, normocephalic. EYES: Pupils equal round and reactive to light, extraocular movements intact, sclera anicteric, conjunctiva are normal. ENT: nares patent, oropharynx clear without exudates. Moist mucous membranes. NECK: Normal range of motion, supple without lymphadenopathy LUNGS: Breath sounds clear to auscultation bilaterally and equal. No wheezes rales or rhonchi. HEART: Regular rate and rhythm without murmurs ABDOMEN: Soft, nontender, normoactive bowel sounds. No guarding, no rebound. No masses appreciated. : no testicular tenderness to palpation, no epididymal tenderness, positive cremasteric reflex bilaterally EXTREMITIES: Normal range of motion, no pitting or edema. No cyanosis. NEUROLOGICAL: No focal neurological deficits. Moves all extremities spontaneously and on command. PSYCH: Normal mood, normal affect. SKIN: Warm, Dry, normal turgor, no rashes or lesions noted. Course - Re-evaluation Re-evalutation: 12/24/16 19:35 Patient presents with intermittent right lower quadrant abdominal pain for the past 2 days. Reports he has a history of similar symptoms in the past secondary to alcohol use. On examination he has no focal right lower quadrant tenderness whatsoever, no rebound or guarding. No pain on the right lower quadrant with palpation of left lower quadrant. His testicular exam normal without any evidence of torsion, epididymitis or orchitis. Positive cremasteric reflex bilaterally. Laboratories are unremarkable without a leukocytosis. I do not clinically suspect an acute appendicitis at this time based on exam, history, vitals and labs. I have had a risks and benefits conversation with the patient regarding CT imaging of the abdomen and pelvis at this time. We discussed, based on today's exam and labs there is a possibility that they could have a diagnosis that could be better clarified by CT and that this could possibly oil changer. We discussed the risks of radiation to the abdomen and pelvis. We discussed the alternative of close follow-up with their primary care physician for a recheck of the abdomen within 24 hours as well as reasons to return to the emergency department. After this conversation , the patient has elected to avoid CT imaging of the abdomen and pelvis at this time. They have capacity. They have verbalized the importance of close follow- up as well as reasons to return to the emergency department including worsening abdominal pain, fever, persistent vomiting, or any other symptoms that are worrisome to them. - Vital Signs Vital signs: Temp Pulse Resp BP Pulse Ox 98.1 F 62 18 120/68 97 12/24/16 20:48 12/24/16 20:48 12/24/16 20:48 12/24/16 20:48 12/24/16 20:48 - Laboratory Result Diagrams: 12/24/16 17:45 12/24/16 17:45 Laboratory results interpreted by me: 12/24/16 12/24/16 17:45 17:45 RDW 14.7 H Seg Neutrophils % 32.2 L Lymphocytes % 50.6 H Absolute Neutrophils 1.6 L Sodium 145.3 H Creatinine 1.61 H Est GFR ( Amer) 56 L Est GFR (Non-Af Amer) 46 L Discharge - Discharge Clinical Impression: Lower abdominal pain Condition: Good Disposition: HOME, SELF-CARE Additional Instructions: You have been seen in the Emergency Department (ED) for abdominal pain. Your evaluation did not identify a clear cause of your symptoms but was generally reassuring. Please follow up with your doctor as soon as possible regarding today's emergent visit and the symptoms that are bothering you. Return to the ED if your abdominal pain worsens or fails to improve, you develop bloody vomiting, bloody diarrhea, you are unable to tolerate fluids due to vomiting, fever greater than 101, or other symptoms that concern you.
[2016-12-24 20:49] VITALS: BP 120/68
== END 2016-12-24 20:49 | disposition home or self-care (01) ==
LOC: ER 16:54
DX: R10.31 Right lower quadrant pain (principal); R10.32 Left lower quadrant pain; R19.7 Diarrhea, unspecified; R00.1 Bradycardia, unspecified; F17.200 Nicotine dependence, unspecified, uncomplicated; Z90.5 Acquired absence of kidney
CPT/HCPCS: 99284; 36415; 83690; 85025; 80053; J3490 ×4

== ENCOUNTER 2017-11-05 02:08 | Emergency (ER) | payer MEDICAID ==
[2017-11-05] MEDS ORDERED: LORAZEPAM INJ 2 MG/1 ML VIAL IV ONE (02:26)
[2017-11-05] MEDS ORDERED: HALOPERIDOL LACTATE INJ 5 MG/1 ML VIAL IM ONE (02:26)
--- NOTE | 2017-11-05 02:27 | ER Document Report ---
ED General - General Stated Complaint: PSYCH EVALUATION Time Seen by Provider: 11/05/17 02:15 Mode of Arrival: Ambulatory Information source: Patient, Emergency Med Personnel, [facility] Records Notes: 47-year-old male with hepatitis B/C, depression, substance abuse presents via EMS from home with complaint of suicidal ideation and auditory hallucinations. Patient states that he started hearing a "the female voice again" this evening that is telling him to kill himself. He has no plan at this time. He has no access to firearms. He does admit to marijuana and crack cocaine use tonight. He also states that he has been off of his Haldol for "a while". He does state that he has been undergoing psychiatric care but is unclear what medications he supposed to be taking. Patient has no physical complaints currently. TRAVEL OUTSIDE OF THE [place] IN LAST 30 DAYS: No - HPI Onset: Just prior to arrival Onset/Duration: Sudden Quality of pain: No pain Associated symptoms: None Exacerbated by: Denies Relieved by: Denies Similar symptoms previously: Yes Recently seen / treated by doctor: No - Related Data Allergies/Adverse Reactions: No Known Allergies Allergy (Verified 12/24/16 17:06) Past Medical History - General Information source: Patient, [facility] Records - Social History Smoking Status: Current Every Day Smoker Smoking Education Provided: Yes - Patient counselled regarding cessation for 4 minutes Frequency of alcohol use: Occasional Drug Abuse: Cocaine, Marijuana Lives with: Spouse/Significant other Family History: Reviewed & Not Pertinent Patient has suicidal ideation: Yes Patient has homicidal ideation: No Neurological Medical History: Reports: Hx Migraine Renal/ Medical History: Denies: Hx Peritoneal Dialysis GI Medical History: Reports: Hx Gastroesophageal Reflux Disease, Hx Hepatitis - B & C, Hx Ulcer Psychiatric Medical History: Reports: Hx Depression Infectious Medical History: Reports: Hx Hepatitis - B & C Past Surgical History: Reports: Hx Abdominal Surgery - left inguinal hernia, Hx Herniorrhaphy, Hx Kidney (Renal Surgery) - Donated kidney, Other - Patient donated a candidate to his brother - Immunizations Immunizations up to date: No Hx Diphtheria, Pertussis, Tetanus Vaccination: Yes Review of Systems - Review of Systems Notes: REVIEW OF SYSTEMS: CONSTITUTIONAL : Denies fever, chills, or sweats. Denies recent illness. Denies weight loss, recent hospitalizations. EENT: Denies visula changes, eye pain. Denies nasal or sinus congestion or discharge. Denies sore throat, oral lesions, difficulty swallowing. CARDIOVASCULAR: Denies chest pain. Denies palpitations or racing or irregular heart beat. Denies lower extremity edema. RESPIRATORY: Denies cough, cold, or chest congestion. Denies shortness of breath, difficulty breathing, or wheezing. GASTROINTESTINAL: Denies abdominal pain or distention. Denies nausea, vomiting , or diarrhea. Denies blood in vomitus, stools, or per rectum. Denies black, tarry stools. Denies constipation. GENITOURINARY: Denies difficulty urinating, painful urination, burning, frequency, blood in urine, or vaginal discharge. MUSCULOSKELETAL: Denies back or neck pain or stiffness. Denies joint pain or swelling. SKIN: Denies rash, lesions or sores. HEMATOLOGIC : Denies easy bruising or bleeding. LYMPHATIC: Denies swollen, enlarged glands. NEUROLOGICAL: Denies confusion or altered mental status. Denies passing out or loss of consciousness. Denies dizziness or lightheadedness. Denies headache. Denies weakness or paralysis or loss of use of either side. Denies problems with gait or speech. Denies sensory loss, numbness, or tingling. Denies seizures. PSYCHIATRIC: Admits to suicidal ideation, auditory hallucinations. Physical Exam - Vital signs Vitals: Temp Pulse Resp BP Pulse Ox 97.5 F 74 16 120/76 99 11/05/17 02:34 11/05/17 02:34 11/05/17 02:34 11/05/17 02:34 11/05/17 02:34 - Notes Notes: PHYSICAL EXAMINATION: GENERAL: Well-appearing, well-nourished and in no acute distress. HEAD: Atraumatic, normocephalic. EYES: Pupils equal round and reactive to light, extraocular movements intact, sclera anicteric, conjunctiva are normal. ENT: Nares patent, oropharynx clear without exudates. Moist mucous membranes. NECK: Normal range of motion, supple without lymphadenopathy LUNGS: Breath sounds clear to auscultation bilaterally and equal. No wheezes rales or rhonchi. HEART: Regular rate and rhythm without murmurs ABDOMEN: Soft, nontender, nondistended abdomen. No guarding, no rebound. No masses appreciated. Musculoskeletal: Normal range of motion, no pitting or edema. No cyanosis. NEUROLOGICAL: Cranial nerves grossly intact. Normal speech, normal gait. Normal sensory, motor exams PSYCH: Normal mood, normal affect. SKIN: Admits to suicidal ideation, auditory hallucinations, denies homicidal ideation. Course - Re-evaluation Re-evalutation: 47-year-old male with hepatitis B/C, depression, substance abuse presents via EMS from home with complaint of suicidal ideation and auditory hallucinations. Patient states that he started hearing a "the female voice again" this evening that is telling him to kill himself. He has no plan at this time. He has no access to firearms. He does admit to marijuana and crack cocaine use tonight. He also states that he has been off of his Haldol for "a while". He does state that he has been undergoing psychiatric care but is unclear what medications he supposed to be taking. Patient has no physical complaints currently. Patient was seen by myself upon arrival. Vital signs were reviewed. Patient is afebrile , normotensive and not hypoxic. Patient does not appear toxic or dehydrated. They are in no acute distress. Previous medical records and nursing notes reviewed. Significant findings include mild STEPHANE, mildly elevated CK. Patient cooperative. Is to have some psychomotor agitation. 1 mg IM of Ativan administered. IVC petition initiated. 11/05/17 03:25 [facility] animal shelter worker presented to the emergency department and states that the patient has been reporting auditory hallucinations for approximately 1 week. Patient does have his medications of Haldol, Prozac and Cogentin but reportedly took them out of the bottles and does not know which medications are which. Patient is supposed to be on Haldol 5 mg twice daily, Prozac 30 mg daily and Cogentin 1 mg twice daily. 11/05/17 03:31 Patient found to have a mildly elevated CK and creatinine. IV fluids administered. Repeat CK and BMP pending. I suspect the repeat labs will be normal after rehydration. If CK does not trend upwards patient will be medically cleared for psychiatric evaluation. 11/05/17 04:33 11/05/17 04:34 - Vital Signs Vital signs: Temp Pulse Resp BP Pulse Ox 97.5 F 74 16 120/76 99 11/05/17 02:34 11/05/17 02:34 11/05/17 02:34 11/05/17 02:34 11/05/17 02:34 - Laboratory Result Diagrams: 11/05/17 02:40 11/05/17 02:40 Laboratory results interpreted by me: 11/05/17 11/05/17 02:40 02:40 RBC 4.25 L Hgb 12.5 L Hct 37.3 L RDW 14.2 H Chloride 109 H Creatinine 1.33 H Est GFR (Non-Af Amer) 57 L Total Bilirubin < 0.1 L Creatine Kinase 305 H Total Protein 5.8 L Salicylates < 1.0 L Acetaminophen < 10 L - EKG Interpretation by Me EKG shows normal: Sinus rhythm Rate: Normal Rhythm: NSR Discharge - Discharge Clinical Impression: Suicidal ideation, Auditory hallucinations, STEPHANE (acute kidney injury), Cocaine abuse, Marijuana abuse Condition: Good Referrals: GOSIA FUNK MD [Primary Care Provider] - Follow up as needed
[2017-11-05 02:50] LABS: ABSOLUTE EOSINOPHILS # (AUTO) 0.2 10^3/uL (0.0-0.6); ABSOLUTE LYMPHOCYTES (AUTO) 2.2 10^3/uL (0.5-4.7); ABSOLUTE MONOCYTES (AUTO) 0.5 10^3/uL (0.1-1.4); ABSOLUTE NEUT (AUTO) 3.1 10^3/uL (1.7-8.2); BASOPHILS % (AUTO) 0.5 % (0-2); EOSINOPHILS % (AUTO) 3.5 % (0-6); HEMATOCRIT 37.3 % (37.9-51.0); HEMOGLOBIN 12.5 g/dL (13.5-17.0); LYMPHOCYTES % (AUTO) 36.4 % (13-45); MEAN CORPUSCULAR HEMOGLOBIN 29.4 pg (27.0-33.4); MEAN CORPUSCULAR HGB CONC 33.6 g/dL (32.0-36.0); MEAN CORPUSCULAR VOLUME 88 fl (80-97); MONOCYTES % (AUTO) 8.8 % (3-13); PLATELET COUNT 228 10^3/uL (150-450); RED BLOOD COUNT 4.25 10^6/uL (4.35-5.55); RED CELL DISTRIBUTION WIDTH 14.2 % (11.5-14.0); SEGMENTED NEUTROPHILS % (AUTO) 50.8 % (42-78); TOTAL CELLS COUNTED % (AUTO) 100 %; WHITE BLOOD COUNT 6.2 10^3/uL (4.0-10.5)
[2017-11-05 02:57] LABS: APPEARANCE,URINE CLEAR; BILIRUBIN,URINE NEGATIVE (NEGATIVE); COLOR,URINE YELLOW; GLUCOSE, URINE NEGATIVE (NEGATIVE); KETONES,URINE NEGATIVE (NEGATIVE); LEUKOCYTE ESTERASE,URINE NEGATIVE (NEGATIVE); NITRITE,URINE NEGATIVE (NEGATIVE); PROTEIN,URINE NEGATIVE (NEGATIVE); URINE SPECIFIC GRAVITY 1.017; UROBILINOGEN,URINE NEGATIVE mg/dL (<2.0)
[2017-11-05 03:03] LABS: ALANINE AMINOTRANSFERASE 31 U/L (21-72); ALBUMIN 3.5 g/dL (3.5-5.0); ALKALINE PHOSPHATASE 63 U/L (38-126); ANION GAP 11 (5-19); ASPARTATE AMINO TRANSFERASE 25 U/L (17-59); BLOOD UREA NITROGEN 14 mg/dL (7-20); CALCIUM 9.3 mg/dL (8.4-10.2); CARBON DIOXIDE 25 mmol/L (22-30); CHLORIDE 109 mmol/L (98-107); CREATINE KINASE 305 U/L (55-170); GLUCOSE 85 mg/dL (75-110); POTASSIUM 4.1 mmol/L (3.6-5.0); SODIUM 144.7 mmol/L (137-145); TOTAL PROTEIN 5.8 g/dL (6.3-8.2)
[2017-11-05 03:04] LABS: ACETAMINOPHEN < 10 ug/mL (10-30); BILIRUBIN,TOTAL < 0.1 mg/dL (0.2-1.3); SALICYLATE < 1.0 mg/dL (2.0-20.0)
[2017-11-05 03:08] LABS: URINE AMPHETAMINES SCREEN NEGATIVE; URINE BARBITURATES SCREEN NEGATIVE; URINE BENZODIAZEPINES SCREEN NEGATIVE; URINE COCAINE SCREEN UNCONFIRMED POSITIVE; URINE MARIJUANA (THC) SCREEN UNCONFIRMED POSITIVE; URINE METHADONE SCREEN NEGATIVE; URINE PHENCYCLIDINE SCREEN NEGATIVE
[2017-11-05] MEDS ORDERED: NORMAL SALINE 1000 ML 1,000 ML IV ONE ×2 (03:14→03:31)
[2017-11-05 03:17] LABS: CREATINE KINASE MB 1.13 ng/mL (<4.55)
[2017-11-05 03:21] LABS: TROPONIN I < 0.012 ng/mL
[2017-11-05] MEDS ORDERED: HALOPERIDOL DECANOATE INJ 100 MG/1 ML VIAL IM ONE (10:20)
[2017-11-05] MEDS ORDERED: BENZTROPINE MESYLATE INJ 2 MG/2 ML AMPULE IM ONE (10:21)
--- NOTE | 2017-11-05 10:25 | ER Document Report ---
Doctor's Note Notes: 11/05/17 10:22 Patient resting comfortably at this time. Will start on Deconate and cogentin. Mental help has seen. Will continue to follow today
--- NOTE | 2017-11-05 10:29 | PSYCHOLOGICAL NOTE ---
Psych Note - Psych Note Psych Note: Reason for Consult: Suicidal ideation 47-year-old male with hepatitis B/C, depression, substance abuse presents via EMS from home with complaint of suicidal ideation and auditory hallucinations. Patient states that he started hearing a "the female voice again" this evening that is telling him to kill himself. He has no plan at this time. He has no access to firearms. He does admit to marijuana and crack cocaine use tonight. He also states that he has been off of his Haldol for "a while". Patient disclosed that he arrived to [facility] ED via EMS because of suicidal ideation. He states he has no plan suffers from suicidal ideation "on and off. " Patient reports that he was "tired of it all." When asked for clarification he stated that he always has to take medication but has suffers from side effects of trembling and shaking. He disclosed that he stopped taking his medication about a month ago. He disclosed that he started to hear the voice again last night for the first time after stopping his medications. He confirms this is the same voice that he has had in the past and has not heard the voice since his 3 month stay at [facility]. He confirms that his stay at [facility] was not this year but is unable to give a more specific timeframe. He reports that he has an act team; "they come to me once a week." Patient agrees he needs to restart his medications and requests a monthly shot to assist with symptoms. Patient confirms he is prescribed Haldol and understands he still needs to take daily medications for maintenance even when he receives a monthly shot. Clinician discussed patient's use of cocaine and marijuana; patient confirms he understands that this would make his symptoms worse. Patient is alert and orientated to person, place, time and circumstance. Mood is euthymic with congruent affect. Patient reports passive suicidal ideation that "comes and goes." Patient discloses auditory command hallucinations. Patient states this is not happened in quite some time; however, did stop his Haldol proximately one month ago. Eye contact was well-maintained. Conversational speech is within normal rate, tone and prosody. Intellectual abilities appear to be within average range. Attention and concentration are good. Insight, judgment, impulse control are fair. Clinician spoke with patient's disclosed that she is very concerned the patient's been off his medications. She states that she woke up with the patient holding a knife to his throat. She disclosed that she was temporarily from the patient during his last "episode" which resulted in him going to [facility]. Patient has been home from [facility] for about a year now and has not had any issues until last night. She disclosed that she does not have a car to come to the hospital today but that she may be able to get a ride tomorrow after amish. If the patient is discharged, she stated "he can walk home." Behavioral health team attempted multiple time to contact the patient ACTT lead Rob, . Medication recommendations per [facility]'s contracted psychiatrist Dr. David POLLOCK are as follows 1. Haldol decanoate 100 mL once 2. Cogentin 2 mL once 3. Haldol 5 mg twice daily for 4. Cogentin 2 mg daily 298.9 (F29) Unspecified Schizophrenia and Other Psychotic Disorder Impression/plan: Patient is recommended for overnight mental health hold for continued observation. Patient disclosed passive suicidal ideation with auditory command hallucination. Patient reports he has been a long time since he has had this occur (last time was before a 3 month stay at [facility] over one year ago). Medication recommendations were provided. Patient did receive the 1 month Haldol Decanoate shot to assist with the patient's symptoms. Patient's discloses concern on patient returning home before tomorrow i.e. with more medication in his system. Behavior health team attempted contact to patient's act team multiple times to multiple different numbers was unsuccessful in contacting anyone. Patient will be reevaluated in the morning for probable discharge. Dr. Everett was consulted and the care management this patient; attending physician is agreement with her conditions and disposition.
--- NOTE | 2017-11-05 16:23 | EKG REPORT ---
SEVERITY:- NORMAL ECG - SINUS RHYTHM : Confirmed by: Nora Gonzalez MD 05-Nov-2017 16:22:29
[2017-11-05] MEDS ORDERED: HALOPERIDOL 5 MG TABLET PO SCH (19:15)
[2017-11-06] MEDS ORDERED: BENZTROPINE MESYLATE 1 MG TABLET PO SCH (10:00)
--- NOTE | 2017-11-06 10:29 | PSYCHOLOGICAL NOTE ---
Psych Note - Psych Note Psych Note: Reason for consult: Re-eval for suicidal ideation and substance abuse Contact permission: [facility] mobile die storage worker Rob, Patient's Eval: [id number] Final Disposition [id number] Patient is a 47 year old male. Patient reports he is feeling better and attributes this to the medications he received. Patient reports on a scale of 1 through 10 with 10 being things are better he at a 5. Patient reports he is feeling better because of the medications and states he needs more time for it to work so that he would get closer to a 10. Patient reports he was using crack cocaine and marijuana for the last 10 years and states it will be hard for him to stop but he is willing to go to therapy for it. Patient reports he was concerned prior to coming in about where he was going to live and states that if he has a place to live and his is okay with him that he would be better able to keep up with his medications. Patient reports he was off medications for a while but cannot remember exactly how long and states that he feels this is why he was not doing well. Patient denied suicidal and homicidal ideation. Medication recommendations made by contracted [facility] psychiatric provider Dr. David MD includes: 1. Please provide prescriptions for Haldol 5 mg twice a day 2. Please prescribe prescription for Cogentin 1 mg twice daily Per comprehensive chart review documented diagnosis as follows: 298.9 (F29) Unspecified Schizophrenia and Other Psychotic Disorder Impression/Plan: Patient is psychiatrically cleared from acute services. Patient denied suicidal and homicidal ideation. Patient disclosed he is interested in substance abuse treatment. Clinician observed patient disclosed utilizing substances over the last 10 years ,clinician provided education regarding substance use and treatment. Clinician coordinated with [facility] mobile die storage worker Rob who stated he discussed intensive outpatient treatment with the client and will be following up with him today to assist him in getting linked into services. Clinician spoke with patient's who stated she would assist patient in getting his medication, and throwing away old medication. Attending physician in agreement with plan and disposition. Consulted with Dr. Everett regarding the management and care of patient.
--- NOTE | 2017-11-06 10:36 | ER Document Report ---
Doctor's Note Notes: 11/06/17 10:34 Rounds: Chart reviewed and patient interviewed. Patient has a history of substance abuse, in particular cocaine. Reportedly complained of suicidal thoughts and hearing voices. History of hepatitis B and C. Out of whatever medication he is supposed to be taking. Required heavy sedation with Haldol upon arrival here yesterday. Lab studies were positive for cocaine and marijuana. CPK was 305 and a repeat of 350. Creatinine 1.33. All other lab studies were essentially normal. Blood pressure and vital signs were all normal. Patient appears to be medically stable for transfer or discharge. Eduardo Pérez MD
[2017-11-06 11:06] VITALS: BP 124/85
== END 2017-11-06 11:06 | disposition home or self-care (01) ==
LOC: ER 02:08
DX: F20.9 Schizophrenia, unspecified (principal); F32.9 Major depressive disorder, single episode, unspecified; R45.851 Suicidal ideations; F12.10 Cannabis abuse, uncomplicated; F14.10 Cocaine abuse, uncomplicated; N17.9 Acute kidney failure, unspecified; F17.200 Nicotine dependence, unspecified, uncomplicated; Z71.6 Tobacco abuse counseling
CPT/HCPCS: 93005; 99285; 96372; 96360; 36415; 82553; 82550; 80307 ×3; 85025; 80053; 81001; 84484; 93010; J0515; J1631; J1630; J3490; J7030

== ENCOUNTER 2017-11-09 09:44 | Emergency (ER) | payer MEDICAID ==
[2017-11-09] MEDS ORDERED: OLANZAPINE 5 MG TAB.RAPDIS PO ONE (10:06)
--- NOTE | 2017-11-09 10:16 | ER Document Report ---
ED General - General Chief Complaint: Psych Problem Stated Complaint: PSYCH EVAL Time Seen by Provider: 11/09/17 09:57 TRAVEL OUTSIDE OF THE [place] IN LAST 30 DAYS: No - HPI Patient complains to provider of: Psychiatric evaluation Notes: Patient coming in for psychiatric evaluation having some auditory hallucinations stating that he was took his medication earlier this morning however medication is not helping and he feels like he is having a breakdown therefore came to the ER for further evaluation. Patient recently admission to the hospital evaluation here in the ER for similar occurrence. Patient denies any marijuana or cocaine use at this time. Patient states compliance with his medication regimen. No fevers chills nausea vomiting diarrhea - Related Data Allergies/Adverse Reactions: No Known Allergies Allergy (Verified 11/09/17 09:49) Past Medical History - Social History Smoking Status: Current Every Day Smoker Chew tobacco use (# tins/day): No Frequency of alcohol use: None Drug Abuse: Cocaine, Marijuana Family History: Reviewed & Not Pertinent Patient has suicidal ideation: Yes Patient has homicidal ideation: No Neurological Medical History: Reports: Hx Migraine Renal/ Medical History: Denies: Hx Peritoneal Dialysis GI Medical History: Reports: Hx Gastroesophageal Reflux Disease, Hx Hepatitis - B & C, Hx Ulcer Psychiatric Medical History: Reports: Hx Depression Infectious Medical History: Reports: Hx Hepatitis - B & C Past Surgical History: Reports: Hx Abdominal Surgery - left inguinal hernia, Hx Herniorrhaphy, Hx Kidney (Renal Surgery) - Donated kidney, Other - Patient donated a candidate to his brother - Immunizations Immunizations up to date: No Hx Diphtheria, Pertussis, Tetanus Vaccination: Yes Review of Systems - Review of Systems Constitutional: No symptoms reported EENT: No symptoms reported Cardiovascular: No symptoms reported Respiratory: No symptoms reported Gastrointestinal: No symptoms reported Genitourinary: No symptoms reported Male Genitourinary: No symptoms reported Musculoskeletal: No symptoms reported Skin: No symptoms reported Hematologic/Lymphatic: No symptoms reported Neurological/Psychological: Hallucinations -: Yes All other systems reviewed and negative Physical Exam - Vital signs Vitals: Temp Pulse Resp BP Pulse Ox 98.4 F 66 20 113/78 97 11/09/17 09:53 11/09/17 09:53 11/09/17 09:53 11/09/17 09:53 11/09/17 09:53 Interpretation: Normal - General General appearance: Appears well, Alert - HEENT Head: Normocephalic, Atraumatic Eyes: Normal Pupils: PERRL - Respiratory Respiratory status: No respiratory distress Chest status: Nontender Breath sounds: Normal Chest palpation: Normal - Cardiovascular Rhythm: Regular Heart sounds: Normal auscultation Murmur: No - Abdominal Inspection: Normal Distension: No distension Bowel sounds: Normal Tenderness: Nontender Organomegaly: No organomegaly - Back Back: Normal, Nontender - Extremities General upper extremity: Normal inspection, Nontender, Normal color, Normal ROM , Normal temperature General lower extremity: Normal inspection, Nontender, Normal color, Normal ROM , Normal temperature, Normal weight bearing. No: Gamaliel's sign - Neurological Neuro grossly intact: Yes Cognition: Normal Orientation: AAOx4 Elkins Coma Scale Eye Opening: Spontaneous Carleen Coma Scale Verbal: Oriented Elkins Coma Scale Motor: Obeys Commands Elkins Coma Scale Total: 15 Speech: Normal Motor strength normal: LUE, RUE, LLE, RLE Sensory: Normal - Psychological Associated symptoms: Anxious - Skin Skin Temperature: Warm Skin Moisture: Dry Skin Color: Normal Course - Re-evaluation Re-evalutation: 11/09/17 10:16 Concerning patient's underlying psychiatric issues are exacerbated by drug use again. Patient will have basic laboratory studies drawn with the patient is in [facility] to see if this will aid in his current situation 11/09/17 19:06 Patient is calm and cooperative patient was evaluated by psychiatric team and we have found placement for the patient to go to [facility] psychiatric facility voluntary for [facility] in [place] and currently there is no transport available to take the patient to the facility until possibly tomorrow morning. Patient has improved and his demeanor will continue his home medications more likely patient had auditory hallucinations again due to cocaine abuse. Patient will continue to be voluntary until the morning when transport can be made is that the patient states he also has no family available to take him to the psychiatric facility in [place] - Vital Signs Vital signs: Temp Pulse Resp BP Pulse Ox 98.0 F 76 19 113/73 98 11/09/17 19:00 11/09/17 19:00 11/09/17 19:00 11/09/17 19:00 11/09/17 19:00 - Laboratory Result Diagrams: 11/09/17 10:17 11/09/17 10:17 Laboratory results interpreted by me: 11/09/17 11/09/17 10:17 10:17 RDW 14.3 H Monocytes % 13.1 H Creatinine 1.26 H Salicylates < 1.0 L Acetaminophen < 10 L Discharge - Discharge Clinical Impression: Cocaine abuse, Auditory hallucinations Schizophrenia Qualifiers: Schizophrenia type: unspecified Qualified Code(s): F20.9 - Schizophrenia, unspecified Condition: Good Disposition: PSYCH HOSP/UNIT Referrals: GOSIA FUNK MD [Primary Care Provider] - Follow up as needed
[2017-11-09] MEDS ORDERED: ZIPRASIDONE HCL 20 MG CAPSULE PO ONE (10:27)
[2017-11-09 10:49] LABS: ABSOLUTE EOSINOPHILS # (AUTO) 0.1 10^3/uL (0.0-0.6); ABSOLUTE LYMPHOCYTES (AUTO) 1.6 10^3/uL (0.5-4.7); ABSOLUTE MONOCYTES (AUTO) 0.6 10^3/uL (0.1-1.4); ABSOLUTE NEUT (AUTO) 2.3 10^3/uL (1.7-8.2); EOSINOPHILS % (AUTO) 2.8 % (0-6); HEMATOCRIT 47.6 % (37.9-51.0); HEMOGLOBIN 15.9 g/dL (13.5-17.0); LYMPHOCYTES % (AUTO) 33.6 % (13-45); MEAN CORPUSCULAR HEMOGLOBIN 29.5 pg (27.0-33.4); MEAN CORPUSCULAR HGB CONC 33.4 g/dL (32.0-36.0); MEAN CORPUSCULAR VOLUME 88 fl (80-97); MONOCYTES % (AUTO) 13.1 % (3-13); PLATELET COUNT 271 10^3/uL (150-450); RED BLOOD COUNT 5.39 10^6/uL (4.35-5.55); RED CELL DISTRIBUTION WIDTH 14.3 % (11.5-14.0); SEGMENTED NEUTROPHILS % (AUTO) 49.5 % (42-78); TOTAL CELLS COUNTED % (AUTO) 100 %; WHITE BLOOD COUNT 4.7 10^3/uL (4.0-10.5)
[2017-11-09 10:55] LABS: APPEARANCE,URINE CLEAR; BILIRUBIN,URINE NEGATIVE (NEGATIVE); COLOR,URINE YELLOW; GLUCOSE, URINE NEGATIVE (NEGATIVE); KETONES,URINE NEGATIVE (NEGATIVE); LEUKOCYTE ESTERASE,URINE NEGATIVE (NEGATIVE); NITRITE,URINE NEGATIVE (NEGATIVE); PROTEIN,URINE NEGATIVE (NEGATIVE); URINE SPECIFIC GRAVITY 1.008; UROBILINOGEN,URINE NEGATIVE mg/dL (<2.0)
[2017-11-09 11:06] LABS: ALANINE AMINOTRANSFERASE 33 U/L (21-72); ALBUMIN 4.6 g/dL (3.5-5.0); ALKALINE PHOSPHATASE 73 U/L (38-126); ANION GAP 10 (5-19); ASPARTATE AMINO TRANSFERASE 37 U/L (17-59); BILIRUBIN,DIRECT 0.2 mg/dL (0.0-0.4); BILIRUBIN,TOTAL 0.2 mg/dL (0.2-1.3); BLOOD UREA NITROGEN 15 mg/dL (7-20); CALCIUM 10.1 mg/dL (8.4-10.2); CARBON DIOXIDE 30 mmol/L (22-30); CHLORIDE 103 mmol/L (98-107); GLUCOSE 75 mg/dL (75-110); POTASSIUM 4.4 mmol/L (3.6-5.0); TOTAL PROTEIN 7.3 g/dL (6.3-8.2)
[2017-11-09 11:08] LABS: ACETAMINOPHEN < 10 ug/mL (10-30); ALCOHOL < 10 mg/dL (NONE DETECTED); SALICYLATE < 1.0 mg/dL (2.0-20.0)
[2017-11-09 11:16] LABS: URINE AMPHETAMINES SCREEN NEGATIVE; URINE BARBITURATES SCREEN NEGATIVE; URINE BENZODIAZEPINES SCREEN NEGATIVE; URINE COCAINE SCREEN UNCONFIRMED POSITIVE; URINE MARIJUANA (THC) SCREEN NEGATIVE; URINE METHADONE SCREEN NEGATIVE; URINE PHENCYCLIDINE SCREEN NEGATIVE
--- NOTE | 2017-11-09 13:27 | EKG REPORT ---
SEVERITY:- BORDERLINE ECG - SINUS RHYTHM PROBABLE LEFT ATRIAL ABNORMALITY ST ELEV, PROBABLE NORMAL EARLY REPOL PATTERN : Confirmed by: Jose Estrada MD 09-Nov-2017 13:26:41
--- NOTE | 2017-11-09 15:50 | PSYCHOLOGICAL NOTE ---
Psych Note - Psych Note Psych Note: Pt to Ed with c/o suicidal ideation without plan, pt reports hearing voices, states took haldol and cogentin as prescribed this AM. Pt states SI not related to anything in particular. Pt is twitching in triage, states has no used crack in "a while". Patient disclosed that he has been hearing the lady's voice again and confirms he used Crack yesterday (the reported onset). He discloses that the lady tell him to kill himself. He denies a plan. Patient is visibly twitching and having difficulty opening his eyes. He is answering questions appropriately and able to converse in a organized linear fashion. Patient's toxicology confirms patient 's use of cocaine. Patient was provided Geodon by attending physician and is currently resting calmly. Patient was accompanied by [facility] mobile field crop i farmworker, Bhavin, who disclosed the patient has not improved since being released on Tuesday. He reports that he is seeing the patient every day and has never witnessed the patient using drugs. He continued to report the patient's denies the patient has an any access or has used any drugs since his release. He continued disclosed concern the patient may need a longer term stabilization because of his continued command hallucination of the woman's voice telling him to kill himself. Clinician spoke with patient again. He confirms the last time he used crack cocaine was Tuesday night. Patient continued to confirm that he started hearing a voice after that timeframe. Patient requests assistance with substance abuse treatment. Clinician contacted [facility] in [place]; a dual diagnosis facility. Faxed patient's referral information. Clinician confirmed patient meets criteria and his packet will be submitted to attending physician to determine if he will be accepted. Diagnosis 298.9 (F29) Unspecified Schizophrenia and Other Psychotic Disorder 292.9 (F14.99) unspecified stimulant related disorder; cocaine Impression\\plan: Patient is recommended for mental health hold. Patient requests assistance for substance abuse and is a dual diagnosis with schizophrenia. Patient's information has been submitted to the [facility] in [place] which they are currently reviewing and will be contacting [facility] if he is accepted. If patient is accepted coordination between [facility] and patient's will need conducted for transportation to facility as this is a voluntary placement. Dr. Everett was consulted and the care and management this patient; attending physician is agreement with recommendations and disposition.
[2017-11-09] MEDS ORDERED: BENZTROPINE MESYLATE 1 MG TABLET PO SCH (17:00)
[2017-11-09] MEDS: HALOPERIDOL 5 MG TABLET PO SCH (17:13)
--- NOTE | 2017-11-10 08:06 | PSYCHOLOGICAL NOTE ---
Psych Note - Psych Note Psych Note: Reason for consult: substance abuse Pt to Ed with c/o suicidal ideation without plan, pt reports hearing voices, states took haldol and cogentin as prescribed this AM. Pt states SI not related to anything in particular. Pt is twitching in triage, states has no used crack in "a while". Clinician conducted checking with patient Patient is euthymic mood with congruent affect. He is sitting up in bed and eating breakfast confirming he still wants to go to treatment. Patient states he does not have any way to get to the [facility] but confirms it is possible his may know a friend that could transport. He agrees to contact his to also assist in obtaining transportation down to [facility]. Diagnosis 298.9 (F29) Unspecified Schizophrenia and Other Psychotic Disorder 292.9 (F14.99) unspecified stimulant related disorder; cocaine Impression\\plan: Patient is cleared from acute psychiatric services. Patient does not meet IVC criteria per [place] GS 122C. Patient was accepted to [facility] approximately 5:45 PM last night. Patient discloses he does not have transportation to go to the [facility] facility. Attending nurse contacted both the [facility] and [facility] for possible assistance. A stated they will be calling this morning if they can locate assistance for the patient. Patient will also be contacting his to see if they can obtain their own transportation for his treatment. Dr. Everett was consulted and the care and management this patient; attending physician is agreement with recommendations and disposition.
[2017-11-10] MEDS: HALOPERIDOL 5 MG TABLET PO SCH (09:17)
[2017-11-10 14:53] VITALS: BP 131/79
== END 2017-11-10 14:53 | disposition home or self-care (01) ==
LOC: ER 09:44
DX: F20.9 Schizophrenia, unspecified (principal); F14.10 Cocaine abuse, uncomplicated; F17.200 Nicotine dependence, unspecified, uncomplicated
CPT/HCPCS: 93005; 99285; 36415; 80307 ×4; 85025; 80053; 81001; 93010; J3490 ×3

== ENCOUNTER 2017-12-24 13:38 | Emergency (ER) | payer MEDICAID, OTHER ==
--- NOTE | 2017-12-24 14:04 | ER Document Report ---
ED Medical Screen (RME) - General Chief Complaint: Suicidal Ideation Stated Complaint: SUICIDAL IDEATION Time Seen by Provider: 12/24/17 14:03 Mode of Arrival: Ambulatory Information source: Patient Notes: This is a 47-year-old man with a history of depression (followed at [facility]) and prior suicide attempts who presents to the emergency room with complaints of "hearing voices telling him to harm himself". He states he has not acted on it yet. He denies any precipitating event. TRAVEL OUTSIDE OF THE [place] IN LAST 30 DAYS: No - Related Data Allergies/Adverse Reactions: No Known Allergies Allergy (Verified 12/24/17 13:39) Past Medical History - Social History Chew tobacco use (# tins/day): No Frequency of alcohol use: None Drug Abuse: Marijuana Neurological Medical History: Reports: Hx Migraine Renal/ Medical History: Denies: Hx Peritoneal Dialysis GI Medical History: Reports: Hx Gastroesophageal Reflux Disease, Hx Hepatitis - B & C, Hx Ulcer Psychiatric Medical History: Reports: Hx Depression Infectious Medical History: Reports: Hx Hepatitis - B & C Past Surgical History: Reports: Hx Abdominal Surgery - left inguinal hernia, Hx Herniorrhaphy, Hx Kidney (Renal Surgery) - Donated kidney, Other - Patient donated a candidate to his brother - Immunizations Immunizations up to date: No Hx Diphtheria, Pertussis, Tetanus Vaccination: Yes Physical Exam - Vital signs Vitals: Temp Pulse Resp BP Pulse Ox 98.3 F 70 18 134/88 H 99 12/24/17 13:51 12/24/17 13:51 12/24/17 13:51 12/24/17 13:51 12/24/17 13:51 Course - Vital Signs Vital signs: Temp Pulse Resp BP Pulse Ox 98.3 F 70 18 134/88 H 99 12/24/17 13:51 12/24/17 13:51 12/24/17 13:51 12/24/17 13:51 12/24/17 13:51 Doctor's Discharge - Discharge Referrals: GOSIA FUNK MD [Primary Care Provider] - Follow up as needed
[2017-12-24 14:55] LABS: ABSOLUTE BASOPHILS # (AUTO) 0.1 10^3/uL (0.0-0.2); ABSOLUTE EOSINOPHILS # (AUTO) 0.2 10^3/uL (0.0-0.6); ABSOLUTE LYMPHOCYTES (AUTO) 2.1 10^3/uL (0.5-4.7); ABSOLUTE MONOCYTES (AUTO) 0.6 10^3/uL (0.1-1.4); ABSOLUTE NEUT (AUTO) 2.8 10^3/uL (1.7-8.2); EOSINOPHILS % (AUTO) 3.8 % (0-6); HEMATOCRIT 43.8 % (37.9-51.0); HEMOGLOBIN 14.5 g/dL (13.5-17.0); LYMPHOCYTES % (AUTO) 36.7 % (13-45); MEAN CORPUSCULAR HEMOGLOBIN 28.8 pg (27.0-33.4); MEAN CORPUSCULAR HGB CONC 33.1 g/dL (32.0-36.0); MEAN CORPUSCULAR VOLUME 87 fl (80-97); MONOCYTES % (AUTO) 10.2 % (3-13); PLATELET COUNT 273 10^3/uL (150-450); RED BLOOD COUNT 5.04 10^6/uL (4.35-5.55); RED CELL DISTRIBUTION WIDTH 13.7 % (11.5-14.0); SEGMENTED NEUTROPHILS % (AUTO) 48.3 % (42-78); TOTAL CELLS COUNTED % (AUTO) 100 %; WHITE BLOOD COUNT 5.8 10^3/uL (4.0-10.5)
[2017-12-24 15:19] LABS: ALANINE AMINOTRANSFERASE 26 U/L (21-72); ALBUMIN 4.4 g/dL (3.5-5.0); ALKALINE PHOSPHATASE 58 U/L (38-126); ANION GAP 11 (5-19); ASPARTATE AMINO TRANSFERASE 28 U/L (17-59); BILIRUBIN,DIRECT 0.3 mg/dL (0.0-0.4); BILIRUBIN,TOTAL 0.4 mg/dL (0.2-1.3); BLOOD UREA NITROGEN 13 mg/dL (7-20); CALCIUM 9.7 mg/dL (8.4-10.2); CARBON DIOXIDE 28 mmol/L (22-30); CHLORIDE 103 mmol/L (98-107); GLUCOSE 87 mg/dL (75-110); POTASSIUM 4.7 mmol/L (3.6-5.0); SODIUM 142.1 mmol/L (137-145); TOTAL PROTEIN 7.3 g/dL (6.3-8.2)
[2017-12-24 15:21] LABS: ACETAMINOPHEN < 10 ug/mL (10-30); ALCOHOL < 10 mg/dL (NONE DETECTED); SALICYLATE < 1.0 mg/dL (2.0-20.0)
--- NOTE | 2017-12-24 15:35 | ER Document Report ---
ED General - General Chief Complaint: Suicidal Ideation Stated Complaint: SUICIDAL IDEATION Time Seen by Provider: 12/24/17 14:03 Mode of Arrival: Ambulatory Information source: Patient Notes: 47-year-old male history of depression who receives Haldol IM monthly presents with complaints of voices telling him to hurt himself. Patient denies any actual attempt denies harming himself denies any homicidal ideations TRAVEL OUTSIDE OF THE [place] IN LAST 30 DAYS: No - HPI Onset: Just prior to arrival Onset/Duration: Sudden Quality of pain: No pain Severity: Mild Pain Level: Denies Associated symptoms: None Exacerbated by: Denies Relieved by: Denies Similar symptoms previously: Yes Recently seen / treated by doctor: Yes - Related Data Allergies/Adverse Reactions: No Known Allergies Allergy (Verified 12/24/17 13:39) Past Medical History - General Information source: Patient - Social History Smoking Status: Current Every Day Smoker Cigarette use (# per day): Yes Chew tobacco use (# tins/day): No Smoking Education Provided: No Frequency of alcohol use: None Drug Abuse: Marijuana Family History: Reviewed & Not Pertinent Patient has suicidal ideation: No Patient has homicidal ideation: No Neurological Medical History: Reports: Hx Migraine Renal/ Medical History: Denies: Hx Peritoneal Dialysis GI Medical History: Reports: Hx Gastroesophageal Reflux Disease, Hx Hepatitis - B & C, Hx Ulcer Psychiatric Medical History: Reports: Hx Depression Infectious Medical History: Reports: Hx Hepatitis - B & C Past Surgical History: Reports: Hx Abdominal Surgery - left inguinal hernia, Hx Herniorrhaphy, Hx Kidney (Renal Surgery) - Donated kidney, Other - Patient donated a candidate to his brother - Immunizations Immunizations up to date: No Hx Diphtheria, Pertussis, Tetanus Vaccination: Yes Review of Systems - Review of Systems Notes: REVIEW OF SYSTEMS: CONSTITUTIONAL : Denies fever, chills, or sweats. Denies recent illness. EENT: Denies eye, ear, throat, or mouth pain or symptoms. Denies nasal or sinus congestion or discharge. Denies throat, tongue, or mouth swelling or difficulty swallowing. CARDIOVASCULAR: Denies chest pain. Denies palpitations or racing or irregular heart beat. Denies ankle edema. RESPIRATORY: Denies cough, cold, or chest congestion. Denies shortness of breath, difficulty breathing, or wheezing. GASTROINTESTINAL: Denies abdominal pain or distention. Denies nausea, vomiting , or diarrhea. Denies blood in vomitus, stools, or per rectum. Denies black, tarry stools. Denies constipation. GENITOURINARY: Denies difficulty urinating, painful urination, burning, frequency, blood in urine, or discharge. MUSCULOSKELETAL: Denies back or neck pain or stiffness. Denies joint pain or swelling. SKIN: Denies rash, lesions or sores. HEMATOLOGIC : Denies easy bruising or bleeding. LYMPHATIC: Denies swollen, enlarged glands. NEUROLOGICAL: Denies confusion or altered mental status. Denies passing out or loss of consciousness. Denies dizziness or lightheadedness. Denies headache. Denies weakness or paralysis or loss of use of either side. Denies problems with gait or speech. Denies sensory loss, numbness, or tingling. Denies seizures. PSYCHIATRIC: Admits to suicidal ideations hearing voices ALL OTHER SYSTEMS REVIEWED AND NEGATIVE. Dictation was performed using [employer] voice recognition software PHYSICAL EXAMINATION: GENERAL: Well-appearing, well-nourished and in no acute distress. HEAD: Atraumatic, normocephalic. EYES: Pupils equal round and reactive to light, extraocular movements intact, sclera anicteric, conjunctiva are normal. ENT: Nares patent, oropharynx clear without exudates. Moist mucous membranes. NECK: Normal range of motion, supple without lymphadenopathy LUNGS: Breath sounds clear to auscultation bilaterally and equal. No wheezes rales or rhonchi. HEART: Regular rate and rhythm without murmurs ABDOMEN: Soft, nontender, nondistended abdomen. No guarding, no rebound. No masses appreciated. Musculoskeletal: Normal range of motion, no pitting or edema. No cyanosis. NEUROLOGICAL: Cranial nerves grossly intact. Normal speech, normal gait. Normal sensory, motor exams PSYCH: Normal mood, normal affect. SKIN: Warm, Dry, normal turgor, no rashes or lesions noted. Physical Exam - Vital signs Vitals: Temp Pulse Resp BP Pulse Ox 98.3 F 70 18 134/88 H 99 12/24/17 13:51 12/24/17 13:51 12/24/17 13:51 12/24/17 13:51 12/24/17 13:51 Course - Re-evaluation Re-evalutation: 12/24/17 15:37 Patient's evaluations quite benign mild renal insufficiency is noted on CMP awaiting drug screen, it is noted the patient has a history of substance abuse he does note that he has been receiving his Haldol as prescribed I am awaiting mental health input at this time - Vital Signs Vital signs: Temp Pulse Resp BP Pulse Ox 98.3 F 70 18 134/88 H 99 12/24/17 13:51 12/24/17 13:51 12/24/17 13:51 12/24/17 13:51 12/24/17 13:51 - Laboratory Result Diagrams: 12/24/17 14:15 12/24/17 14:15 Laboratory results interpreted by me: 12/24/17 14:15 Creatinine 1.48 H Est GFR (Non-Af Amer) 51 L Salicylates < 1.0 L Acetaminophen < 10 L Discharge - Discharge Clinical Impression: Depression Qualifiers: Depression Type: unspecified Qualified Code(s): F32.9 - Major depressive disorder, single episode, unspecified Condition: Good Disposition: HOME, SELF-CARE Additional Instructions: You were seen in the ED and evaluated by the Medical and Behavioral Health Teams for suicidal ideation and determined to be appropriate for discharge at this time. You are scheduled to see your outpatient provider [facility] ,next month and encouraged to let them know about this visit to the hospital. Clinician also discussed appropriate coping skills. No Medicine Recommendations at this time. SUICIDAL IDEATION: Suicidal ideation is a common medical term for thoughts about suicide, which may be as detailed as a formulated plan, without the suicidal act itself. Although most people who undergo suicidal ideation do not commit suicide, some go on to make suicide attempts. The range of suicidal ideation varies greatly from fleeting to detailed planning, role playing, and unsuccessful attempts. While thoughts about suicide are common, most people do not carry out serious actions to commit suicide. Based upon your evaluation and discussion with you, we do not believe you are currently at risk to act upon your thoughts of suicide. You have agreed to return to the Emergency Department, at any time , if you feel inclined to act upon your suicidal thoughts. FOLLOW-UP CARE: If you have been referred to a physician for follow-up care, call the physician s office for an appointment as you were instructed or within the next two days. If you experience worsening or a significant change in your symptoms, notify the physician immediately or return to the Emergency Department at any time for re-evaluation. Referrals: GOSIA FUNK MD [NO LOCAL MD] - Follow up as needed
[2017-12-24 17:06] LABS: APPEARANCE,URINE CLEAR; BILIRUBIN,URINE NEGATIVE (NEGATIVE); COLOR,URINE YELLOW; GLUCOSE, URINE NEGATIVE (NEGATIVE); KETONES,URINE NEGATIVE (NEGATIVE); LEUKOCYTE ESTERASE,URINE NEGATIVE (NEGATIVE); NITRITE,URINE NEGATIVE (NEGATIVE); PROTEIN,URINE NEGATIVE (NEGATIVE); URINE SPECIFIC GRAVITY 1.018; UROBILINOGEN,URINE NEGATIVE mg/dL (<2.0)
[2017-12-24 17:16] LABS: URINE AMPHETAMINES SCREEN NEGATIVE; URINE BARBITURATES SCREEN NEGATIVE; URINE BENZODIAZEPINES SCREEN NEGATIVE; URINE COCAINE SCREEN UNCONFIRMED POSITIVE; URINE MARIJUANA (THC) SCREEN UNCONFIRMED POSITIVE; URINE METHADONE SCREEN NEGATIVE; URINE PHENCYCLIDINE SCREEN NEGATIVE
[2017-12-24 20:30] VITALS: BP 122/78
--- NOTE | 2017-12-25 03:06 | EKG REPORT ---
SEVERITY:- NORMAL ECG - SINUS RHYTHM : Confirmed by: Nora Gonzalez MD 25-Dec-2017 03:05:34
--- NOTE | 2017-12-25 18:25 | PSYCHOLOGICAL NOTE ---
Psych Note - Psych Note Psych Note: Met with patient who reported that he was having suicidal thoughts earlier today as he was walking to the store. Patient reports that he was hearing a "female voice in his head telling him to hurt himself". Patient was unable to articulate any specifics regarding exactly what "she" was telling him to do. So , patient went to the store and then walked back home. Patient states that he told his that he was hearing voices and she told him to "go over a friend' s house and sleep it off". Then patient states he could still hear the voices but that they were getting louder in his head at this point, so that is what made him decide to come to the ED. The patient's cousin drove him here and dropped him off. Patient states that he does not own any guns and does not have access to any guns. Patient states that he does not have access to any medications, as the only medications that he gets is a shot once a month from his provider, Rob at [facility], which he had an appointment with right after the 30 of November. Patient was found to be positive for cocaine, marijuana per director of casework's report. primary health organisation manager also reports that patient had a placement in [place] but failed to arrange transportation. Patient currently denies any plans to harm himself. Diagnosis: 296.7 Bipolar I Disorder Impression/Plan: Patient was speaking in a very slow manner. Made good eye contact. Patient would keep repositioning himself while in bed, constantly pulling the covers over him. Patient denied that he was cold. Patient evasive when Clinician asked questions about the voices that he was hearing.
== END 2017-12-24 20:25 | disposition home or self-care (01) ==
LOC: ER 13:38
DX: F31.9 Bipolar disorder, unspecified (principal); F17.210 Nicotine dependence, cigarettes, uncomplicated; F12.10 Cannabis abuse, uncomplicated; R45.851 Suicidal ideations; N28.9 Disorder of kidney and ureter, unspecified; Z79.899 Other long term (current) drug therapy
CPT/HCPCS: 36415; 80053; 80307; 81001; 85025; 93005; 93010; 99285

== ENCOUNTER 2019-09-24 12:44 | Emergency (ER) | payer MEDICAID, OTHER ==
--- NOTE | 2019-09-24 12:57 | ER Document Report ---
ED Medical Screen (RME) - General Chief Complaint: Jaw Pain Stated Complaint: SWOLLEN JAW Time Seen by Provider: 09/24/19 12:52 Mode of Arrival: Ambulatory Information source: Patient Notes: Patient is a 49-year-old male presenting to the emergency department chief complaint of facial swelling. Patient reports this started about 2 to 3 weeks ago initially as some dental pain to the left upper. Patient reports salt swelling has significantly gotten worse to the point where patient is having difficulty speaking. Patient has pretty significant swelling to the left side of his face that is causing what appears to be displacement of the jaw towards the right. Patient is handling his own secretions but does have a garbled voice. I have greeted and performed a rapid initial assessment of this patient. A comprehensive ED assessment and evaluation of the patient, analysis of test results and completion of the medical decision making process will be conducted by additional ED providers. I have specifically instructed the patient or family members with the patient to immediately return to any nursing staff should anything change in the patient's condition or with their chief complaint. TRAVEL OUTSIDE OF THE [place] IN LAST 30 DAYS: No - Related Data Allergies/Adverse Reactions: No Known Allergies Allergy (Verified 12/24/17 13:39) Past Medical History Neurological Medical History: Reports: Hx Migraine Renal/ Medical History: Denies: Hx Peritoneal Dialysis GI Medical History: Reports: Hx Gastroesophageal Reflux Disease, Hx Hepatitis - B & C, Hx Ulcer Psychiatric Medical History: Reports: Hx Depression Infectious Medical History: Reports: Hx Hepatitis - B & C Past Surgical History: Reports: Hx Abdominal Surgery - left inguinal hernia, Hx Herniorrhaphy, Hx Kidney (Renal Surgery) - Donated kidney, Other - Patient donated a candidate to his brother - Immunizations Immunizations up to date: No Hx Diphtheria, Pertussis, Tetanus Vaccination: Yes Physical Exam - Vital signs Vitals: Temp Pulse Resp BP Pulse Ox 98.5 F 96 20 128/90 H 100 09/24/19 12:50 09/24/19 12:50 09/24/19 12:50 09/24/19 12:50 09/24/19 12:50 Course - Vital Signs Vital signs: Temp Pulse Resp BP Pulse Ox 98.5 F 96 20 128/90 H 100 09/24/19 12:50 09/24/19 12:50 09/24/19 12:50 09/24/19 12:50 09/24/19 12:50
[2019-09-24 13:21] LABS: ABSOLUTE LYMPHOCYTES (AUTO) 1.3 10^3/uL (0.5-4.7); ABSOLUTE MONOCYTES (AUTO) 1.2 10^3/uL (0.1-1.4); ABSOLUTE NEUT (AUTO) 5.1 10^3/uL (1.7-8.2); BASOPHILS % (AUTO) 0.4 % (0-2); EOSINOPHILS % (AUTO) 0.6 % (0-6); HEMATOCRIT 42.5 % (37.9-51.0); HEMOGLOBIN 14.6 g/dL (13.5-17.0); LYMPHOCYTES % (AUTO) 16.5 % (13-45); MEAN CORPUSCULAR HEMOGLOBIN 29.8 pg (27.0-33.4); MEAN CORPUSCULAR HGB CONC 34.3 g/dL (32.0-36.0); MEAN CORPUSCULAR VOLUME 87 fl (80-97); MONOCYTES % (AUTO) 15.4 % (3-13); PLATELET COUNT 247 10^3/uL (150-450); RED BLOOD COUNT 4.89 10^6/uL (4.35-5.55); RED CELL DISTRIBUTION WIDTH 14.2 % (11.5-14.0); SEGMENTED NEUTROPHILS % (AUTO) 67.1 % (42-78); TOTAL CELLS COUNTED % (AUTO) 100 %; WHITE BLOOD COUNT 7.6 10^3/uL (4.0-10.5)
[2019-09-24] MEDS ORDERED: DEXAMETHASONE SOD PHOS INJ 10 MG/1 ML VIAL IV ONE (13:46)
[2019-09-24 13:47] LABS: ALBUMIN 4.2 g/dL (3.5-5.0); ALKALINE PHOSPHATASE 54 U/L (38-126); ANION GAP 8 (5-19); ASPARTATE AMINO TRANSFERASE 20 U/L (17-59); BILIRUBIN,TOTAL 0.8 mg/dL (0.2-1.3); BLOOD UREA NITROGEN 14 mg/dL (7-20); CALCIUM 9.5 mg/dL (8.4-10.2); CARBON DIOXIDE 31 mmol/L (22-30); CHLORIDE 97 mmol/L (98-107); GLUCOSE 120 mg/dL (75-110); POTASSIUM 4.6 mmol/L (3.6-5.0); TOTAL PROTEIN 6.8 g/dL (6.3-8.2)
[2019-09-24] MEDS ORDERED: CLINDAMYCIN 600 MG/D5W RTU 600 MG/50 ML RTUPB IV ONE (13:47)
--- NOTE | 2019-09-24 13:53 | ER Document Report ---
ED Oral Problem - General Chief Complaint: Facial Swelling Stated Complaint: SWOLLEN JAW Time Seen by Provider: 09/24/19 12:52 Primary Care Provider: CATALINA SANCHEZ MD [Primary Care Provider] - Follow up as needed Mode of Arrival: Ambulatory Information source: Patient - ADS #8 KVO cold Notes: 49-year-old male presents to ED for complaint of pain and swelling to the left side of his face. He states he has had facial pain for about 2 to 3 weeks and the left side of his face started swelling up yesterday. He states the swelling has gotten much worse. He is able to speak in full sentences and is handling his own secretions. He is alert oriented respirations regular nonlabored speaking in full sentences. He does have a large cavity on the upper jaw on the left. There is no obvious abscess there. TRAVEL OUTSIDE OF THE U.S. IN LAST 30 DAYS: No - HPI Patient complains to provider of: Jaw pain, Swelling of face, Swelling of jaw, Toothache Onset: Other - 2 to 3 weeks Quality of pain: Achy, Pressure, Sharp Severity: Moderate Pain Level: 4 Swollen jaw/face: Moderate Associated symptoms: Facial pain, Jaw pain, Toothache. denies: Drooling Worsened by: Cold Relieved by: Nothing Similar symptoms previously: Yes Recently seen / treated by doctor/dentist: No - Related Data Allergies/Adverse Reactions: No Known Allergies Allergy (Verified 12/24/17 13:39) Past Medical History - General Information source: Patient - Social History Smoking Status: Current Every Day Smoker Cigarette use (# per day): Yes - Half pack a day Smoking Education Provided: Yes - 4 minutes Frequency of alcohol use: None Drug Abuse: None Lives with: Family Family History: Reviewed & Not Pertinent Patient has suicidal ideation: No Patient has homicidal ideation: No - Past Medical History Cardiac Medical History: Reports: None Pulmonary Medical History: Reports: None EENT Medical History: Reports: None Neurological Medical History: Reports: Hx Migraine Renal/ Medical History: Denies: Hx Peritoneal Dialysis Malignancy Medical History: Reports None GI Medical History: Reports: Hx Gastroesophageal Reflux Disease, Hx Hepatitis - B & C, Hx Ulcer Musculoskeletal Medical History: Reports None Skin Medical History: Reports None Psychiatric Medical History: Reports: Hx Depression Traumatic Medical History: Reports: None Infectious Medical History: Reports: Hx Hepatitis - B & C Past Surgical History: Reports: Hx Abdominal Surgery - left inguinal hernia, Hx Herniorrhaphy, Hx Kidney (Renal Surgery) - Donated kidney, Other - Patient donated a candidate to his brother - Immunizations Immunizations up to date: No Hx Diphtheria, Pertussis, Tetanus Vaccination: Yes Review of Systems - Review of Systems Constitutional: No symptoms reported EENT: Mouth pain, Mouth swelling, Dental problem, Other - Facial swelling Cardiovascular: No symptoms reported Respiratory: No symptoms reported Gastrointestinal: No symptoms reported Genitourinary: No symptoms reported Male Genitourinary: No symptoms reported Musculoskeletal: No symptoms reported Skin: No symptoms reported Hematologic/Lymphatic: No symptoms reported Neurological/Psychological: No symptoms reported -: Yes All other systems reviewed and negative Physical Exam - Vital signs Vitals: Temp Pulse Resp BP Pulse Ox 98.5 F 96 20 128/90 H 100 09/24/19 12:50 09/24/19 12:50 09/24/19 12:50 09/24/19 12:50 09/24/19 12:50 Interpretation: Normal - General General appearance: Appears well, Alert - HEENT Head: Normocephalic, Atraumatic Eyes: Normal Pupils: PERRL Ears: Normal External canal: Normal Tympanic membrane: Normal Sinus: Normal Nasal: Normal Mouth/Lips: Caries Mucous membranes: Normal - 36/1 pathology Teeth diagram: 1 - Cavity swelling to the gums Pharynx: Normal Neck: Normal - Respiratory Respiratory status: No respiratory distress Chest status: Nontender Breath sounds: Normal Chest palpation: Normal - Cardiovascular Rhythm: Regular Heart sounds: Normal auscultation Murmur: No - Abdominal Inspection: Normal Distension: No distension Bowel sounds: Normal Tenderness: Nontender Organomegaly: No organomegaly - Back Back: Normal, Nontender - Extremities General upper extremity: Normal inspection, Nontender, Normal color, Normal ROM, Normal temperature General lower extremity: Normal inspection, Nontender, Normal color, Normal ROM, Normal temperature, Normal weight bearing. No: Gamaliel's sign - Neurological Neuro grossly intact: Yes Cognition: Normal Orientation: AAOx4 Carleen Coma Scale Eye Opening: Spontaneous [place] Coma Scale Verbal: Oriented [place]leen Coma Scale Motor: Obeys Commands [place] Coma Scale Total: 15 Speech: Normal Motor strength normal: LUE, RUE, LLE, RLE Sensory: Normal - Psychological Associated symptoms: Normal affect, Normal mood - Skin Skin Temperature: Warm Skin Moisture: Dry Skin Color: Normal Course - Re-evaluation Re-evalutation: 09/24/19 21:[address] face with patient. Patient was started on clindamycin IV and treated with steroids. He was given a prescription for clindamycin at home. He was instructed to please follow medicine as soon as possible. - Vital Signs Vital signs: Temp Pulse Resp BP Pulse Ox 98.2 F 75 18 132/82 H 98 09/24/19 15:43 09/24/19 15:43 09/24/19 15:43 09/24/19 15:43 09/24/19 15:43 - Laboratory Result Diagrams: 09/24/19 13:10 09/24/19 13:10 Laboratory results interpreted by me: 09/24/19 09/24/19 13:10 13:10 RDW 14.2 H [place] % (Auto) 15.4 H Sodium 135.8 L Chloride 97 L Carbon Dioxide 31 H Creatinine 1.47 H Est GFR (MDRD) Non-Af 51 L Glucose 120 H - Diagnostic Test Radiology reviewed: Image reviewed, Reports reviewed Discharge - Discharge Clinical Impression: Pain due to dental caries Condition: Stable Disposition: HOME, SELF-CARE Additional Instructions: TOOTHACHE: Your pain is due to dental decay. The tooth must be repaired in order for you to feel better. You will, therefore, be referred to a dentist. We do not have dentists on the staff at [facility]. Severe swelling or drainage around a tooth usually means a dental abscess. This also requires evaluation and treatment by the dentist, but antibiotics may be prescribed while awaiting dental treatment. You should be rechecked immediately if you develop major swelling of the face, increasing pain, a lump in the jaw or gums, headache, difficulty swallowing, or fever. CLINDAMYCIN: You have been given a prescription for the antibiotic clindamycin. It is often prescribed for infections in the mouth, such as dental infections or abscesses, and for skin infections due to MRSA. It's important that you take all the medication, unless instructed otherwise by your physician. Failure to complete the entire course can result in relapse of your condition. Common side effects of antibiotics include nausea, intestinal cramping, or diarrhea. Women may develop vaginal yeast infections, and babies can get yeast (thrush) in the mouth following the use of antibiotics. Contact your physician if you develop significant side effects from this medication. Allergy to this antibiotic can result in hives, wheezing, faintness, or itching. If symptoms of allergy occur, stop the medication and call the doctor. Toradol Injection You have been given an injection of ketorolac tromethamine (Toradol). This is an excellent, safe drug for pain control. It also has potent antiinflammatory action. You should have significant pain relief within about one hour. Toradol is not addicting and is non-sedating. It does not interfere with d riving or work. Call or return if you develop itching, hives, shortness of breath, or rash. STEROID MEDICATION: You have been given an injection of medicine of the cortisone/steroid class. This medication is used to control inflammation or allergy. It is often continued as a pill for a short period of time, until the acute process subsides. There are usually no side effects from short-term use of cortisone-like medications. Some persons feel an increased sense of well-being and are not sleepy at bedtime. Long-term use of cortisone medications is best avoided, unless required for a severe condition. If your condition does not remit, or relapses after the course of corticosteroid medication, you should consult your physician. FOLLOW-UP CARE: You have been referred for follow-up care to the dentists listed below. Call the dentists office for an appointment as you were instructed or within the next two days. If you experience worsening or a significant change in your symptoms, notify the physician immediately or return to the Emergency Department at any time for re-evaluation. [facility] [address] [place], [place] Tuesday mornings, by appointment [facility] [address] [place] [address] [facility] [address] [facility] [address] [facility] [place]. [facility] [address] [email or web address] [address] [place] [address] Tuesday- 8:00am to 5:00 pm Will see patients from other [facility]. Charges based on income and family size and accepts Medicare, Medicaid, and Insurances Will pull molars [facility] [address] Hours of Operation 8:00 am - 4:30 pm weekdays The following dental offices accept Medicaid: [facility] Dr. Mahan Dr. Keenan Dr. Zhang Dr. Ambrose Roverto Gan Lutsavage, and [facility] Dr. Cerna ([place]) Dr. Monzon ([place]) [facility] Drs. Flanagan and Alon ([place]) Dr. Lainez ([place]) [facility] Dr. Amezcua ([place]) Drs. Elise and ([place]) Medicaid Care Line Prescriptions: Clindamycin HCl 300 mg PO Q6 #28 capsule Referrals: CATALINA SANCHEZ MD [Primary Care Provider] - Follow up as needed
--- NOTE | 2019-09-24 14:29 | RADIOLOGY REPORT (SQ) ---
EXAM DESCRIPTION: CT SOFT TISSUE NECK WITH IMAGES COMPLETED DATE/TIME: 09/24/2019 1:06 pm REASON FOR STUDY: facial swelling. Patient has a dental infection. COMPARISON: None. TECHNIQUE: Post IV contrasted scanning from skull base through lung apices with review of bone, soft tissue and lung windows. Reconstructed coronal and sagittal MPR images reviewed. All images stored on PACS. All CT scanners at this facility use dose modulation, iterative reconstruction, and/or weight based d osing when appropriate to reduce radiation dose to as low as reasonably achievable (ALARA). [facility]: Dose Right [facility]: CareDose [facility]: Dose Right [facility]: Teradose 4D [facility]: [place] [employer] CONTRAST TYPE AND DOSE: contrast/concentration: Isovue mg/ml; Total Contrast Delivered: 75.0 ml; To kimberley Saline Delivered: 55.0 ml RENAL FUNCTION: GFR > 60. RADIATION DOSE: CT Rad equipment meets quality standard of care and radiation dose reduction techniq ues were employed. CTDIvol: 13.0 mGy. DLP: 439 mGy-cm. . LIMITATIONS: None. FINDINGS: SKULL BASE: Intact. MAJOR SALIVARY GLANDS: No solid or cystic masses. No inflammatory changes. LYMPHADENOPATHY: No adenopathy. MUCOSAL MASSES OR ASYMMETRY: No mucosal masses or asymmetry. LARYNX/CORDS: No abnormal findings. VASCULAR STRUCTURES: The major vessels are patent. LUNG APICES: Clear. BONES: Multilevel spondylosis in the cervical spine with degenerative disc disease and facet arthropa thy. No fracture, lytic or blastic bone lesion. Multiple dental fillings in the posterior teeth. N o definite periapical abscess or evidence of osteomyelitis. THYROID: Normal size. No masses. PARANASAL SINUSES: There is mild mucosal thickening inferior left maxillary sinus. No air-fluid leve ls. Remaining paranasal sinuses are clear. OTHER: Mild soft tissue swelling and subcutaneous edema involving the left mandibular soft tissues. No focal drainable abscess. IMPRESSION: 1. Mild soft tissue swelling in the facial soft tissues overlying the left mandible. No focal draina ble abscess. Multiple dental fillings obscure some detail, however there does not appear to be any l ytic bone lesion to suggest osteomyelitis. TECHNICAL DOCUMENTATION: JOB ID: [id number] Quality ID # [id number]: Final reports with documentation of one or more dose reduction techniques (e.g., Au tomated exposure control, adjustment of the mA and/or kV according to patient size, use of iterative reconstruction technique) 2010 [employer]- All Rights Reserved Reading location - IP/workstation name: [id number]
[2019-09-24 15:44] VITALS: BP 132/82
[2019-09-24] MEDS ORDERED: KETOROLAC TROMETHAMINE INJ/PF 30 MG/1 ML SDV IV ONE (15:48)
== END 2019-09-24 16:43 | disposition home or self-care (01) ==
LOC: ER 12:44
DX: K02.9 Dental caries, unspecified (principal); K08.89 Other specified disorders of teeth and supporting structures; R22.0 Localized swelling, mass and lump, head; R68.84 Jaw pain; R51 Headache; F17.210 Nicotine dependence, cigarettes, uncomplicated
CPT/HCPCS: 99284; 96375; 96365; 36415; 85025; 80053; 70491; S0077; J1885; J1100

== ENCOUNTER 2020-02-26 11:30 | Emergency (ER) | payer MEDICAID ==
--- NOTE | 2020-02-26 12:52 | ER Document Report ---
ED Medical Screen (RME) - General Chief Complaint: Psych Problem Stated Complaint: PSYCH EVAL Time Seen by Provider: 02/26/20 12:42 Primary Care Provider: CATALINA SANCHEZ MD [Primary Care Provider] - Follow up as needed TRAVEL OUTSIDE OF THE U.S. IN LAST 30 DAYS: No - HPI Notes: 02/26/20 12:50 50-year-old male with a history of schizophrenia and substance abuse presents to the emergency room for complaints of suicidal ideation, patient came in with mobile crisis. Patient states that he had a knife to his neck and he wants to kill himself, his did take the knife, when mobile crisis showed up to the house, he did take a hot box checker from him. Patient denies ingesting any chemicals, substances. Patient has had a history with SI. Denies any HI. Patient has been a resident at other facilities associated with his mental health issues. Denies any chest pain shortness of breath, fevers or chills I have greeted and performed a rapid initial assessment of this patient. A comprehensive ED assessment and evaluation of the patient, analysis of test results and completion of the medical decision making process will be conducted by additional ED providers. PHYSICAL EXAMINATION: GENERAL: Well-appearing, well-nourished and in mild distress HEAD: Atraumatic, normocephalic. EYES: Pupils equal round extraocular movements intact, conjunctiva are normal. NECK: Normal range of motion. no lacerations or abrasion noted on neck CV: s1, s2 regular LUNGS: No respiratory distress NEUROLOGICAL: Normal speech, normal gait. SKIN: Warm, Dry, normal turgor, no rashes or lesions noted. 02/26/20 12:51 - Related Data Allergies/Adverse Reactions: No Known Allergies Allergy (Verified 02/26/20 12:44) Past Medical History Neurological Medical History: Reports: Hx Migraine Renal/ Medical History: Denies: Hx Peritoneal Dialysis GI Medical History: Reports: Hx Gastroesophageal Reflux Disease, Hx Hepatitis - B & C, Hx Ulcer Psychiatric Medical History: Reports: Hx Depression Infectious Medical History: Reports: Hx Hepatitis - B & C Past Surgical History: Reports: Hx Abdominal Surgery - left inguinal hernia, Hx Herniorrhaphy, Hx Kidney (Renal Surgery) - Donated kidney, Other - Patient donated a candidate to his brother - Immunizations Immunizations up to date: No Hx Diphtheria, Pertussis, Tetanus Vaccination: Yes Physical Exam - Vital signs Vitals: Temp Pulse Resp BP Pulse Ox 98.1 F 84 18 130/94 H 98 02/26/20 11:34 02/26/20 11:34 02/26/20 11:34 02/26/20 11:34 02/26/20 11:34 Course - Vital Signs Vital signs: Temp Pulse Resp BP Pulse Ox 98.1 F 84 18 130/94 H 98 02/26/20 11:34 02/26/20 11:34 02/26/20 11:34 02/26/20 11:34 02/26/20 11:34 Doctor's Discharge - Discharge Referrals: CATALINA SANCHEZ MD [Primary Care Provider] - Follow up as needed
[2020-02-26 13:45] LABS: APPEARANCE,URINE CLEAR; BILIRUBIN,URINE NEGATIVE (NEGATIVE); COLOR,URINE YELLOW; GLUCOSE, URINE NEGATIVE (NEGATIVE); KETONES,URINE NEGATIVE (NEGATIVE); LEUKOCYTE ESTERASE,URINE NEGATIVE (NEGATIVE); NITRITE,URINE NEGATIVE (NEGATIVE); PROTEIN,URINE NEGATIVE (NEGATIVE); URINE SPECIFIC GRAVITY 1.014; UROBILINOGEN,URINE NEGATIVE mg/dL (<2.0)
[2020-02-26 14:03] LABS: ALBUMIN 4.1 g/dL (3.5-5.0); ALKALINE PHOSPHATASE 72 U/L (38-126); ANION GAP 6 (5-19); ASPARTATE AMINO TRANSFERASE 27 U/L (17-59); BILIRUBIN,DIRECT 0.2 mg/dL (0.0-0.4); BILIRUBIN,TOTAL 0.4 mg/dL (0.2-1.3); BLOOD UREA NITROGEN 13 mg/dL (7-20); CALCIUM 9.5 mg/dL (8.4-10.2); CARBON DIOXIDE 28 mmol/L (22-30); CHLORIDE 104 mmol/L (98-107); GLUCOSE 85 mg/dL (75-110); POTASSIUM 4.5 mmol/L (3.6-5.0); TOTAL PROTEIN 6.4 g/dL (6.3-8.2); URINE AMPHETAMINES SCREEN NEGATIVE; URINE BARBITURATES SCREEN NEGATIVE; URINE BENZODIAZEPINES SCREEN NEGATIVE; URINE METHADONE SCREEN NEGATIVE; URINE PHENCYCLIDINE SCREEN NEGATIVE
[2020-02-26 14:05] LABS: ACETAMINOPHEN < 10 ug/mL (10-30); ALCOHOL < 10 mg/dL (NONE DETECTED); SALICYLATE < 1.0 mg/dL (2.0-20.0)
[2020-02-26 14:06] LABS: URINE COCAINE SCREEN UNCONFIRMED POSITIVE; URINE MARIJUANA (THC) SCREEN UNCONFIRMED POSITIVE
[2020-02-26 14:26] LABS: ABSOLUTE EOSINOPHILS # (AUTO) 0.2 10^3/uL (0.0-0.6); ABSOLUTE LYMPHOCYTES (AUTO) 1.8 10^3/uL (0.5-4.7); ABSOLUTE MONOCYTES (AUTO) 0.6 10^3/uL (0.1-1.4); ABSOLUTE NEUT (AUTO) 2.5 10^3/uL (1.7-8.2); BASOPHILS % (AUTO) 0.5 % (0-2); EOSINOPHILS % (AUTO) 4.1 % (0-6); HEMATOCRIT 37.9 % (37.9-51.0); LYMPHOCYTES % (AUTO) 35.5 % (13-45); MEAN CORPUSCULAR HEMOGLOBIN 29.5 pg (27.0-33.4); MEAN CORPUSCULAR HGB CONC 34.4 g/dL (32.0-36.0); MEAN CORPUSCULAR VOLUME 86 fl (80-97); MONOCYTES % (AUTO) 10.9 % (3-13); PLATELET COUNT 237 10^3/uL (150-450); RED BLOOD COUNT 4.42 10^6/uL (4.35-5.55); TOTAL CELLS COUNTED % (AUTO) 100 %; WHITE BLOOD COUNT 5.1 10^3/uL (4.0-10.5)
--- NOTE | 2020-02-26 15:40 | ER Document Report ---
ED General - General Chief Complaint: Suicidal Ideation Stated Complaint: PSYCH EVAL Time Seen by Provider: 02/26/20 12:42 Primary Care Provider: CATALINA SANCHEZ MD [Primary Care Provider] - Follow up as needed TRAVEL OUTSIDE OF THE U.S. IN LAST 30 DAYS: No - HPI Notes: Patient is a 50-year-old male with a known history of schizophrenia, cocaine abuse, and medication noncompliance, who presents to the emergency department for evaluation of command auditory hallucinations and suicidal ideation. He states that the voices told him to kill himself. His called mobile crisis, and he was found with a boxing instructor to his neck. He was unable to inflict any wounds. He states he missed his medication yesterday, he states it is not uncommon for his hallucinations to return when he misses his medications. He denies any homicidal ideation. No visual hallucinations at this time. Otherwise he denies any pain. He states he last met crack cocaine approximately 1 month ago. He has no other issues at this time. - Related Data Allergies/Adverse Reactions: No Known Allergies Allergy (Verified 02/26/20 12:44) Home Medications: Meds reconciled per pharmacy list. Please see notes. Past Medical History - General Information source: Patient - Social History Smoking Status: Current Every Day Smoker Chew tobacco use (# tins/day): No Frequency of alcohol use: None Drug Abuse: Cocaine, Marijuana Family History: Reviewed & Not Pertinent Neurological Medical History: Reports: Hx Migraine Renal/ Medical History: Denies: Hx Peritoneal Dialysis GI Medical History: Reports: Hx Gastroesophageal Reflux Disease, Hx Hepatitis - B & C, Hx Ulcer Psychiatric Medical History: Reports: Hx Depression, Hx Schizophrenia Infectious Medical History: Reports: Hx Hepatitis - B & C Past Surgical History: Reports: Hx Abdominal Surgery - left inguinal hernia, Hx Herniorrhaphy, Hx Kidney (Renal Surgery) - Donated kidney, Other - Patient donated a candidate to his brother - Immunizations Immunizations up to date: No Hx Diphtheria, Pertussis, Tetanus Vaccination: Yes Review of Systems - Review of Systems Constitutional: No symptoms reported EENT: No symptoms reported Cardiovascular: No symptoms reported Respiratory: No symptoms reported Gastrointestinal: No symptoms reported Genitourinary: No symptoms reported Musculoskeletal: No symptoms reported Skin: No symptoms reported Neurological/Psychological: See HPI Physical Exam - Vital signs Vitals: Temp Pulse Resp BP Pulse Ox 98.1 F 84 18 130/94 H 98 02/26/20 11:34 02/26/20 11:34 02/26/20 11:34 02/26/20 11:34 02/26/20 11:34 - Notes Notes: This is a 50-year-old male who appears his stated age. He is mildly agitated, paces back and forth in the room. He does not appear to be reacting to internal stimuli at this time. He has mildly diminished eye contact, but is cooperative with examiner. Vital signs reviewed, please refer to chart. Head is normocephalic, atraumatic. Pupils equal round, reactive to light. Neck is supple without meningismus. Heart is regular rate and rhythm. Lungs are clear to auscultation bilaterally. Abdomen is soft, nontender, normoactive bowel sounds throughout. Extremities without cyanosis, clubbing. Posterior calves are nontender. Peripheral pulses are equal. Skin is warm and dry. Patient is awake, alert, neurological exam is nonfocal. Course - Re-evaluation Re-evalutation: 02/26/20 15:38 Patient presents to the emergency department for evaluation. He was brought in by mobile crisis. The patient was suicidal with command hallucinations. He is known to the emergency department. He had laboratory investigations for medical clearance ordered. His labs were remarkable only for drug screen positive for cocaine and marijuana. Otherwise, he does have a history of STEPHANE and labs here, his creatinine is near baseline. He has no complaints. I will get head and order a low-dose nicotine patch, regular diet. He is already been seen by the psychosocial team, 24-hour hold papers are placed. He is medically cleared for further psychiatric evaluation. - Vital Signs Vital signs: Temp Pulse Resp BP Pulse Ox 98.1 F 84 18 130/94 H 98 02/26/20 11:34 02/26/20 11:34 02/26/20 11:34 02/26/20 11:34 02/26/20 11:34 - Laboratory Result Diagrams: 02/26/20 13:10 02/26/20 13:10 Laboratory results interpreted by me: 02/26/20 02/26/20 13:10 13:10 Hgb 13.0 L Creatinine 1.55 H Est GFR ( Amer) 57 L Est GFR (MDRD) Non-Af 47 L Salicylates < 1.0 L Acetaminophen < 10 L - EKG Interpretation by Me Additional EKG results interpreted by me: 02/26/20 15:39 Sinus bradycardia with a rate of 50 bpm. Normal axis and intervals. ST changes consistent with early repolarization. No old studies available for immediate comparison. Discharge - Discharge Clinical Impression: Suicidal ideations, Auditory hallucinations Condition: Stable Disposition: OTHER Referrals: CATALINA SANCHEZ MD [Primary Care Provider] - Follow up as needed
[2020-02-26] MEDS ORDERED: TRAZODONE HCL 50 MG TABLET PO PRN (15:41)
[2020-02-26] MEDS ORDERED: NICOTINE 14 MG/24 HR PATCH.TD24 TD ONE (16:43)
--- NOTE | 2020-02-26 17:27 | PSYCHOLOGICAL NOTE ---
Psych Note - Psych Note Date seen by psych provider: 02/26/20 Time seen by psych provider: 14:15 Psych Note: Reason for Consult: Auditory hallucinations/ suicidal gesture Patient arrived to [facility] ED via POV with Mobile Crisis responder with IFS. Patient reports "they voices are back." Patient reports command hallucination that are telling him to kill himself. Patient's called the patient clinical home, [facility]. [facility] requested she call mobile crisis. Mobile patch worker states when he arrived on scene, patient had picker box operator and removed boxed cutter from patient. Patient reports he has not been taking his medications correctly the last few days. He confirms he is also on a monthly shot and is not due until next month. Patient reports it has been a month since he last used cocaine and that he smoke THC about a week ago. Patient reports he now lives with his and is no longer living at [facility]. Patient is alert and orientated to person, place, time and circumstance. Mood is currently euthymic with congruent affect. Patient reports command auditory hallucinations that are telling him to kill himself. Significant psychomotor agitation is noted with constant shifting and fidgeting. Patient is able to engage in organized and linear conversation with normal rate tone and prosody for speech. Intellectual abilities appear to be low average range. Attention and concentration is fair to poor. Insight, judgment, impulse control is historically poor for this patient due to long-term substance abuse and chronic mental health. Clinical presentation: Cocaine intoxication Substance induced psychosis Impression/Plan: Patient is recommended for 24 hour petition for evaluation; paperwork is signed and placed in patient's chart. Patient is currently demonstrating that he is under the influence of cocaine. Patient has a long documented history of cocaine abuse. While he deny current use, toxicology report indicates probable positive. Patient is also demonstrating psychomotor agitation. While evaluation and observation is ongoing, probable discharge from acute psychiatric services in the morning when no longer under the influence. Dr. Everett was consulted to care management of this patient; tending physicians in agreement with recommendations and disposition.
[2020-02-26] MEDS ORDERED: DEUTETRABENAZINE 6 MG PO SCH (18:00)
[2020-02-26] MEDS ORDERED: DEUTETRABENAZINE 12 MG PO SCH (18:00)
[2020-02-26] MEDS: DEUTETRABENAZINE 6 MG PO SCH (18:07)
[2020-02-26] MEDS: DEUTETRABENAZINE 12 MG PO SCH (18:07)
--- NOTE | 2020-02-26 19:01 | EKG REPORT ---
SEVERITY:- NORMAL ECG - SINUS RHYTHM ST ELEV, PROBABLE NORMAL EARLY REPOL PATTERN : Confirmed by: Jose Estrada MD 26-Feb-2020 18:59:56
[2020-02-27] MEDS: DEUTETRABENAZINE 12 MG PO SCH ×2 (09:29→17:48)
[2020-02-27] MEDS: DEUTETRABENAZINE 6 MG PO SCH ×2 (09:29→17:47)
[2020-02-27] MEDS ORDERED: BENZTROPINE MESYLATE 1 MG TABLET PO SCH (10:00)
--- NOTE | 2020-02-27 12:05 | ER Document Report ---
Doctor's Note Notes: Patient reevaluated, he is being sent to [facility]. Patient understands his plan of care. He is stable for transport.
--- NOTE | 2020-02-27 13:30 | PSYCHOLOGICAL NOTE ---
Psych Note - Psych Note Date seen by psych provider: 02/27/20 Time seen by psych provider: 10:53 - Evaluation with patient from [id number]. Psych Note: Patient is a 50 year old male in the Emergency Department on a 24 Hour Petition for Evaluation for suicidal ideation with action of putting music box mechanic to neck, hearing auditory command hallucinations, history of schizophrenia and substance abuse (current Urine Drug Screen positive for Cocaine and Cannabis, patient de nied recent use of Cocaine), and noncompliant with medication. Patient was asleep been woke up easily. He stated "alright" when asked how he was doing today. He identified he is in the hospital due to "hearing voices, suicide voices." He said "yes" to both hearing voices since being in the emergency department and hearing them during evaluation. When asked what the voice was saying he stated "it is a female voice, telling me to harm myself with a knife, I tried this time by putting a knife to my throat but my took it." Patient said "yes" to wanting to act on hurting himself. Patient admitted to previous attempts at hurting/harming/killing self. He denied homicidal ideation. Patient admitted to using "weed once every 2 weeks." When confronted about being positive for Cocaine patient said "yeah I use it maybe once a month, I don't recall the last time I used it." He was made aware to be positive for Cocaine means he used in the last 24-72 hours. He did not deny or confirm. Psychoed ucated patient how Cocaine and Cannabis can cause and/or exacerbate psychosis and he commented "I didn't know the drugs could do that." Patient at first denied being on medication but then followed up with "just a once a month shot I get at [facility]." He stated he thought it was called "Ingresa or something" and when this clinician said Invega he said "yes." He reported he had been to [facility] earlier this month. He identified he only does medication management at [facility]. Patient admitted to previous mental health hospitalization and mentioned having been to [facility], "it has been awhile" since last hospitalization. He was informed medication was started and he said "yes." He denied negative side effects and none observed. Patient was alert and oriented to self, person, place, time and situation. Mood was euthymic with congruent affect. He continued to endorse suicidal ideation via saying he wanted to act on hurting himself. Patient did not appear to be responding to internal stimuli as evidenced by fair eye contact and answering questions appropriately when addressed, however he reported still hearing a female voice telling him to harm self with a knife. Thought processes were linear and organized. Conversational speech was within normal limits for rate, tone and prosody. Intellectual abilities are estimated to be average. Insight, judgment and impulse control were fair to poor as evidenced by reporting auditory command hallucinations, having taken action last evening via putting music box mechanic to neck, however able to interact appropriately and answer questions when addressed. At 1136 called [facility]. Spoke to Conchita. She stated they have male bed availability. Provided information regarding crisis event. Faxed referral at [phone]. Clinical Presentation: Polysubstance Use Cocaine Cannabis Psychosis- auditory command voice of female telling him to harm self with a knife Suicidal Ideation- held a music box mechanic to neck yesterday and took it away History of Schizophrenia Impression/Plan: Recommendation for FULL Involuntary Commitment (patient was on a 24 Hour Petition for Evaluation). Made referral to [facility]. Patient continued to endorse auditory command hallucinations of a female voice telling him to harm self with a knife and wanting to take action to hurt self. He put a music box mechanic to his neck yesterday and per patient report had to take it from him. Patient was positive for Cocaine and Cannabis, both of which he reported he uses infrequently. He has a history of schizophrenia and drug use, and he reported he receives a monthly injection from [facility]. Consulted with Dr. Everett regarding the management and care of patient. ED Physician in agreement with recommendations.
[2020-02-27 18:14] VITALS: BP 147/88
== END 2020-02-27 18:25 | disposition other institution (70) ==
LOC: ER 11:30
DX: F20.9 Schizophrenia, unspecified (principal); R45.851 Suicidal ideations; F14.10 Cocaine abuse, uncomplicated; Z91.14 Patient's other noncompliance with medication regimen
CPT/HCPCS: 93005; 99285; 36415; 80307 ×4; 85025; 80053; 81001; 93010; J3490 ×2